=== PATIENT | male | born 1950 | race Caucasian/White ===

== ENCOUNTER 2019-06-09 12:43 | Inpatient (IN) | payer OTHER ==
[~2019-06-09] VITALS: Ht 177.8 cm; Wt 97.9 kg
[2019-06-09] VITALS (7 sets, daily range): BP systolic 125–162; BP diastolic 68–88
[2019-06-09 13:19] LABS: HEMATOCRIT 42.2 % (42.0-52.0); HEMOGLOBIN 14.1 gm/dL (14.0-18.0); MCHC 33.4 g/dL (28.0-37.0); MCV 92.7 fL (80.0-100.0); MPV 8.5 fl. (7.2-11.1); NUCLEATED RBCS 0 /100WBC; PCO2 VENOUS 36.3 mmHg (41.0-51.0); PLATELET COUNT* 400 thou/uL (150-400); PO2 VENOUS 35.1 mmHg (35.0-45.0); RBC 4.55 mil/uL (4.50-6.00); RDW-CV 13.3 % (10.5-14.5); WBC 25.8 thou/uL (4.0-11.0)
[2019-06-09 13:33] LABS: APTT 30.6 Seconds (25.0-31.3); PROTIME 10.4 Seconds (9.20-11.50)
[2019-06-09 13:35] LABS: CALCIUM 9.3 mg/dL (8.5-10.1); POTASSIUM 3.7 mmol/L (3.5-5.1)
[2019-06-09 13:45] LABS: ABSOLUTE LYMPHOCYTES 1.5 thou/uL (0.8-5.3); ABSOLUTE MONOCYTES 1.5 thou/uL (0.0-1.2); ABSOLUTE NEUTROPHILS 22.7 thou/uL (1.6-8.1); ATYPICAL LYMPHS 1 %; PLATELET ESTIMATE ADEQUATE
[2019-06-09 13:50] LABS: ALBUMIN 2.4 g/dL (3.4-5.0); CK-MB MASS 0.6 ng/mL (<0.5-3.6); TOTAL BILIRUBIN 0.7 mg/dL (<0.1-1.0)
--- NOTE | 2019-06-09 16:57 | EKG ---
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: TP : 1950 Requested By: Nagi Sigala Order Number: [id number] MD: Samir Gordon Measurements Intervals [place] Rate: 114 P: 7 NH: 144 QRS: -26 QRSD: 89 T: 24 QT: 345 QTc: 476 Interpretive Statements Sinus tachycardia Left atrial enlargement Borderline left axis deviation Borderline prolonged QT interval Baseline wander in lead(s) V1,V2,V4,V5 No previous ECG available for comparison Electronically Signed On 06-09-2019 16:57:16 [employer] by Samir Gordon [email or web address] <ELECTRONICALLY SIGNED> By: Samir Gordon MD, FACC 06/09/19 1657 1256 1256 Samir Gordon MD, FAC /EPI
[2019-06-09 17:04] LABS: URINE BLOOD TRACE (Negative); URINE CLARITY CLEAR; URINE COLOR YELLOW; URINE GLUCOSE-RANDOM 3+ (Negative); URINE LEUKOCYTES-REFLEX NEGATIVE (Negative); URINE NITRITE-REFLEX NEGATIVE (Negative); URINE PROTEIN TRACE (Negative); URINE SPECIFIC GRAVITY 1.025 (1.005-1.030); URINE UROBILINOGEN 0.2 E.U./dl (0.2-1.0)
[2019-06-09 17:07] LABS: URINE KETONES 3+ (Negative)
[2019-06-09 17:08] LABS: ICTOTEST (BILI CONFIRMATORY) Negative (Negative); URINE BILIRUBIN 1+ (Negative)
[2019-06-09 17:46] LABS: CALCIUM 9.2 mg/dL (8.5-10.1); CREATININE 0.8 mg/dL (0.6-1.3); POTASSIUM 3.1 mmol/L (3.5-5.1)
[2019-06-09 17:49] LABS: MAGNESIUM 1.7 mg/dL (1.8-2.4); PHOSPHORUS* 2.8 mg/dL (2.5-4.9)
[2019-06-09 21:19] LABS: ABSOLUTE BASOPHILS 0.2 thou/uL (0.0-0.2); ABSOLUTE LYMPHOCYTES 1.2 thou/uL (0.8-5.3); ABSOLUTE MONOCYTES 1.7 thou/uL (0.0-1.2); ABSOLUTE NEUTROPHILS 21.9 thou/uL (1.6-8.1); BASOPHILS 0.7 %; HEMATOCRIT 39.8 % (42.0-52.0); HEMOGLOBIN 13.3 gm/dL (14.0-18.0); LYMPHOCYTES 4.7 %; MCH 30.8 pg (26.0-34.0); MCHC 33.3 g/dL (28.0-37.0); MCV 92.4 fL (80.0-100.0); MONOCYTES 6.6 %; MPV 8.4 fl. (7.2-11.1); NUCLEATED RBCS 0 /100WBC; PLATELET COUNT* 332 thou/uL (150-400); RBC 4.31 mil/uL (4.50-6.00); RDW-CV 13.6 % (10.5-14.5); WBC 24.9 thou/uL (4.0-11.0)
[2019-06-09 21:36] LABS: ALBUMIN 1.8 g/dL (3.4-5.0); CALCIUM 9.2 mg/dL (8.5-10.1); CREATININE 0.8 mg/dL (0.6-1.3); PHOSPHORUS* 2.2 mg/dL (2.5-4.9); POTASSIUM 3.4 mmol/L (3.5-5.1)
[2019-06-09 21:52] LABS: CALCIUM 8.6 mg/dL (8.5-10.1); CREATININE 0.7 mg/dL (0.6-1.3); POTASSIUM 3.5 mmol/L (3.5-5.1); TOTAL BILIRUBIN 0.5 mg/dL (<0.1-1.0); TOTAL PROTEIN 5.9 g/dL (6.4-8.2)
[2019-06-09 22:11] LABS: ALBUMIN 1.6 g/dL (3.4-5.0)
[2019-06-09 22:12] LABS: MAGNESIUM 1.6 mg/dL (1.8-2.4)
[2019-06-10] VITALS (23 sets, daily range): BP systolic 101–148; BP diastolic 56–95
[2019-06-10 01:42] LABS: CREATININE 0.8 mg/dL (0.6-1.3); POTASSIUM 3.4 mmol/L (3.5-5.1)
[2019-06-10 01:45] LABS: ALBUMIN 1.5 g/dL (3.4-5.0); MAGNESIUM 1.6 mg/dL (1.8-2.4); PHOSPHORUS* 2.1 mg/dL (2.5-4.9)
[2019-06-10 05:54] LABS: ALBUMIN 1.5 g/dL (3.4-5.0); CALCIUM 8.9 mg/dL (8.5-10.1); CREATININE 0.7 mg/dL (0.6-1.3); MAGNESIUM 2.1 mg/dL (1.8-2.4); PHOSPHORUS* 2.3 mg/dL (2.5-4.9); POTASSIUM 3.7 mmol/L (3.5-5.1)
[2019-06-11] VITALS (23 sets, daily range): BP systolic 106–151; BP diastolic 60–88
[2019-06-11 02:06] LABS: GLYCOHEMOGLOBIN (HGB A1C) 13.4 % (4.8-5.6)
[2019-06-11 04:49] LABS: ABSOLUTE BASOPHILS 0.1 thou/uL (0.0-0.2); ABSOLUTE LYMPHOCYTES 1.4 thou/uL (0.8-5.3); ABSOLUTE MONOCYTES 1.7 thou/uL (0.0-1.2); ABSOLUTE NEUTROPHILS 15.9 thou/uL (1.6-8.1); BASOPHILS 0.7 %; EOSINOPHILS 0.1 %; HEMATOCRIT 36.3 % (42.0-52.0); HEMOGLOBIN 12.1 gm/dL (14.0-18.0); LYMPHOCYTES 7.2 %; MCH 30.6 pg (26.0-34.0); MCHC 33.4 g/dL (28.0-37.0); MCV 91.6 fL (80.0-100.0); MONOCYTES 8.7 %; MPV 7.9 fl. (7.2-11.1); NUCLEATED RBCS 0 /100WBC; PLATELET COUNT* 331 thou/uL (150-400); POLYS 83.3 %; RBC 3.96 mil/uL (4.50-6.00); RDW-CV 13.5 % (10.5-14.5); WBC 19.1 thou/uL (4.0-11.0)
[2019-06-11 05:00] LABS: ALBUMIN 1.2 g/dL (3.4-5.0); CALCIUM 8.3 mg/dL (8.5-10.1); CREATININE 0.8 mg/dL (0.6-1.3); MAGNESIUM 1.8 mg/dL (1.8-2.4); PHOSPHORUS* 2.6 mg/dL (2.5-4.9); POTASSIUM 3.8 mmol/L (3.5-5.1)
[2019-06-11 05:01] LABS: CHLORIDE 105 mmol/L (98-107); POTASSIUM 3.8 mmol/L (3.5-5.1); SODIUM 136 mmol/L (136-145)
[2019-06-11 05:02] LABS: ALBUMIN 1.2 g/dL (3.4-5.0); ANION GAP 11 mmol/L (7-16); BUN 15 mg/dL (7-18); CALCIUM 8.3 mg/dL (8.5-10.1); CO2 20 mmol/L (21-32); CREATININE 0.8 mg/dL (0.6-1.3); GLUCOSE 202 mg/dL (70-99); PHOSPHORUS* 2.6 mg/dL (2.5-4.9)
[2019-06-11 05:16] LABS: ALKALINE PHOSPHATASE 125 U/L (46-116); SGOT 9 U/L (15-37); SGPT 6 U/L (30-65); TOTAL BILIRUBIN 0.4 mg/dL (<0.1-1.0); TOTAL PROTEIN 4.1 g/dL (6.4-8.2)
--- NOTE | 2019-06-11 12:06 | CON ---
[address] [address] CONSULTATION Name: JORDANMIAH Room: [address] ADM IN M.R.#: [id number] Admission: 06/09/19 Attend Phys: Alta Mckeon Discharge: Date of : 52 Report #: [id number] THIS REPORT FOR: //name// CC: Carlos Hernandez DATE OF SERVICE: 06/10/2019 INFECTIOUS DISEASE CONSULTATION ATTENDING PHYSICIAN: Dr. Hernandez. REASON FOR EVALUATION: Necrotizing infection involving his right foot in a patient with uncontrolled diabetes mellitus. HISTORY OF PRESENT ILLNESS: Chart reviewed, the patient examined. This is a 69-year-old who apparently has been somewhat likely to avoid health concerns since his 7 years ago. His diabetes mellitus has been uncontrolled, does have feeling in his feet, it is a question of some peripheral neuropathy. Over the course of last few days, prior to admission, claims to have increasing inflammatory changes noticed to the right foot. It is not clear that he had any injury. He does have a chronic ulceration involving the plantar aspect of his left foot as well. He did admit to what he described as fevers, shaking chills, sweats. He describes some weight loss, poor p.o. intake. [place] [address]. Chest x-ray was unremarkable. Creatinine initially was 1.0, albumin of 2.4. Lactic acid 2.5. Urinalysis showed no significant inflammation. Venous Dopplers showed no evidence of DVT. Arterial Doppler showed monophasic waveforms. Blood cultures are sterile thus far. Imaging of the foot, plain film, showed extensive soft tissue gas within the forefoot dorsally at the level of the metatarsals and within the great toe suggestive of extensive soft tissue infection. No definite osteomyelitis. He is scheduled to undergo operative debridement this afternoon. ALLERGIES: None known. MEDICATIONS: Currently include Zosyn, pantoprazole, vancomycin, prochlorperazine, p.r.n. analgesics. PAST MEDICAL HISTORY: He has diabetes mellitus, has been cleared for a number of years. SOCIAL HISTORY: Nonsmoker, no ethanol, no illicit drug use. FAMILY HISTORY: Noncontributory. REVIEW OF SYSTEMS: Otherwise, unremarkable 10-point review [place] [address] CONSULTATION Name: MIAH ORTEGA Room: [address] [facility]#: [id number] Admission: 06/09/19 Attend Phys: Alta Mckeon Discharge: Date of : 52 Report #: [id number] exception noted above. PHYSICAL EXAMINATION: GENERAL: Xlpa-xl-shfgdzuw distress, appears chronically ill, undernourished. He is pleasant and cooperative. He appears to be fairly lucid. VITAL SIGNS: Temperature max 102.1, more recently 98.5; pulse 105, respirations 22, blood pressure 135/74. SKIN: Warm, dry, no rashes. HEENT: Normocephalic. Extraocular muscles intact. NECK: Supple. LUNGS: Generally clear to auscultation. HEART: Regular. Borderline tachycardic. I do not appreciate a murmur. ABDOMEN: Soft, nontender, nondistended. EXTREMITIES: Distal right lower extremity has changes consistent with some necrosis. The skin is intact. There is odor, some clear type drainage, markedly discolored. GENITOURINARY: Deferred. RECTAL: Deferred. LABORATORY DATA: As described above. Labs from this morning, sodium 133, potassium 3.7, chloride 103, bicarbonate is 20, anion gap of 10, BUN and creatinine 17 and 0.7, glucose of 164, albumin of 1.5, prealbumin of 3.1. CBC: White count of 24.9, H and H 13.3 and 39.8, platelets of 332, does have monocytosis as well. ASSESSMENT: Necrotizing infection involving the right foot in a patient with uncontrolled diabetes mellitus. Did discuss with Dr. Sailaja Mckeon. I think there is urgent need to and agree he needs to have surgical debridement. We will continue broad-spectrum antimicrobial therapy, empiric nature, suspect polymicrobial etiology including anaerobes possibly. He is not overtly unstable hemodynamically. We will monitor expectantly. Add incentive spirometry. Certainly risk for additional complications. Blood sugar control certainly will be primary. Optimize his nutritional status. <ELECTRONICALLY SIGNED> By: Jeanmarie Rodriguez MD 06/11/19 1206 1635 0021Jeanmarie Rodriguez MD /nt
--- NOTE | 2019-06-11 16:39 | 2DMMODE ---
[place] [address] 2 D/M-MODE ECHOCARDIOGRAM Name: MIAH ORTEGA Room: [facility] IN [facility]#: [id number] Admission: 06/09/19 Attend Phys: Arie Hernandez Discharge: Date of : 52 Date of Service: 06/11/19 1639 Report #: [id number] THIS REPORT FOR: //name// APPROVED REPORT Study performed: 06/11/2019 14:53:11 EXAM: Comprehensive 2D, Doppler, and color-flow Echocardiogram Patient Location: In-Patient Room #: [facility] Status: routine BSA: 2.03 HR: 109 bpm BP: 131/69 mmHg Rhythm: NSR Other Information Study Quality: Good Indications Dyspnea 2D Dimensions IVSd: 12.16 (7-11mm) LVOT Diam: 22.41 (18-24mm) LVDd: 44.92 mm PWd: 10.75 (7-11mm) Ascending Ao: 33.99 (22-36mm) LVDs: 31.21 (25-40mm) Aortic Root: 35.54 mm Volumes Left Atrial Volume (Systole) LA ESV Index: 25.20 mL/m2 Aortic Valve LVOT Max P.45 mmHg LVOT Mean P.86 mmHg LVOT Max V: 0.93 m/s LVOT Mean V: 0.64 m/s LVOT V1 VTI: 17.86 cm Mitral Valve E/A Ratio: 0.83 MV Decel. Time: 151.25 ms MV E Max Girish.: 1.07 m/s MV PHT: 43.86 [place] [address] 2 D/M-MODE ECHOCARDIOGRAM Name: MIAH ORTEGA Room: [address] IN [facility]#: [id number] Admission: 06/09/19 Attend Phys: Arie Hernandez Discharge: Date of : 52 Date of Service: 06/11/19 1639 Report #: [id number] MVA (PHT): 5.02 cm2 TDI E/Lateral E': 7.64 E/Medial E': 10.70 Medial E' Girish.: 0.10 m/s Lateral E' Girish.: 0.14 m/s Pulmonary Valve PV Peak Girish.: 0.92 m/s PV Peak Gr.: 3.41 mmHg Left Ventricle The left ventricle is normal size. There is normal LV segmental wall motion. There is normal left ventricular wall thickness. Left ventricular systolic function is normal. LVEF is 55-60%. Grade I - abnormal relaxation pattern. Right Ventricle The right ventricle is normal size. The right ventricular systolic function is normal. Atria Left atrium is mildly dilated. The right atrium size is normal. Aortic Valve Mild aortic valve sclerosis. No aortic regurgitation is present. There is no aortic valvular stenosis. Mitral Valve There is mitral annular calcification. Trace mitral regurgitation. No evidence of mitral valve stenosis. Tricuspid Valve The tricuspid valve is normal in structure. No pulmonary hypertension. Trace tricuspid regurgitation. Pulmonic Valve The pulmonary valve is normal in structure. There is no pulmonic valvular regurgitation. Great Vessels The aortic root is normal in size. IVC is normal in size and collapses >50% with inspiration. Pericardium There is no pericard[place] [address] 2 D/M-MODE ECHOCARDIOGRAM Name: MIAH ORTEGA Room: [facility] IN M.R.#: [id number] Admission: 06/09/19 Attend Phys: Arie Hernandez Discharge: Date of : 52 Date of Service: 06/11/19 1639 Report #: [id number] <Conclusion> The left ventricle is normal size. There is normal left ventricular wall thickness. Left ventricular systolic function is normal. LVEF is 55-60%. Grade I - abnormal relaxation pattern. Left atrium is mildly dilated. Mild aortic valve sclerosis. There is no aortic valvular stenosis. Trace mitral regurgitation. No pulmonary hypertension. Trace tricuspid regurgitation. IVC is normal in size and collapses >50% with inspiration. <ELECTRONICALLY SIGNED> By: Denton Perez MD, FACC 06/11/19 1639 1639 1639 Denton Perez MD, FACC /INF
[2019-06-12] VITALS (10 sets, daily range): BP systolic 121–148; BP diastolic 68–88
--- NOTE | 2019-06-12 07:48 | OP ---
[facility] [address] [place] [address] OPERATIVE REPORT Name: MIAH ORTEGA Room: [address] ADM IN M.R.#: [id number] Admission: 06/09/19 Attend Phys: Alta Mckeon Discharge: Date of : 52 Report #: [id number] THIS REPORT FOR: //name// CC: Carlos Hernandez DATE OF SERVICE: 06/10/2019 SURGEON: Sailaja Mckeon DPM. FINANCE ADMIN: None. PREOPERATIVE DIAGNOSIS: Gas gangrene, right foot, abscess right foot, ascending cellulitis, right foot. POSTOPERATIVE DIAGNOSIS: Osteomyelitis, right hallux, gas gangrene, right foot, abscess right foot, ascending cellulitis, right foot. PROCEDURE: Partial first ray amputation and incision and drainage, right foot. PATHOLOGY: Right hallux and right first metatarsal and deep cultures, aerobic and anaerobic. ANESTHESIA: General anesthesia. HEMOSTASIS: Right pneumatic upper calf tourniquet set at 250 mmHg pressure. ESTIMATED BLOOD LOSS: Less than 12 mL. MATERIALS: 3-0 Vicryl. INJECTABLES: None. CONDITION: The patient tolerated the procedure well and left the OR in stable condition. DESCRIPTION OF PROCEDURE: The patient was brought to the OR and placed in a supine position, at which time, anesthesia was administered. A well-padded high calf tourniquet was placed to the right lower extremity. The patient was then prepped and draped in the usual sterile and aseptic manner. A timeout was called, patient identified along with the extremity, procedures to be performed, any known allergies, all parties in the OR were in agreement. The calf tourniquet was elevated to 250 mmHg pressure. Attention was then directed to the right foot where a circular incision was made around the right hallux. The right hallux was removed all the way down to the first metatarsophalangeal joint as the superficial and deep fascia planes were dissected, [place] [address] OPERATIVE REPORT Name: JORDANMIAH Room: [address] ADM IN .R.#: [id number] Admission: 06/09/19 Attend Phys: Alta Mckeon Discharge: Date of : 52 Report #: [id number] gas within the tissue began to be expelled. The hallux was removed from the surgical site, will be sent separately from remaining pathology. The tissue was inspected to the first metatarsophalangeal joint. There was camilla purulence coming from the subcutaneous level of tissue on the dorsum of the foot. The purulence extended down into the deep tissue going more proximal to the first metatarsal and to the lateral forefoot through the superficial and deep fascial planes. Dissection was begun within the remaining surgical site. All devitalized tissue was removed from the immediate operative site. The first metatarsal was resected down to the base as there was no soft tissue coverage for this. This bone was resected and sent separately. Deep cultures were obtained, both aerobic and anaerobic. At this point, I probed through the subcutaneous fascia to the lateral aspect of the foot. It was clear that the skin overlying this area has become somewhat devitalized and underneath is that a layer of purulence and I suspect a deeper layer. Utilizing suction as much purulence as I could identify, it was removed from the surgical site and through superficial and deep fascial planes. Next, the surgical site was irrigated with sterile saline and antibiotic solution. Next, the surgical site was again inspected further, devitalized tissue was resected. At this point, purulence still was active within the surgical site. At this point, I elected to leave the patient open and not to pursue any further amputation or tissue removal. The surgical site was packed with 0.5 inch iodoform gauze, ABDs, Kerlix, and soft roll. The calf tourniquet was deflated after a period of 3 minutes. There was no bleed through to the surgical dressing. Coban was applied. Vascular status was noted to return to the remaining digits. The patient left the OR in stable condition and was transferred back to the ICU. <ELECTRONICALLY SIGNED> By: Sailaja Mckeon DPM 06/12/19 0748 0617 0648Sailaja Mckeon DPM /sailaja
[2019-06-12 10:47] LABS: CALCIUM 8.5 mg/dL (8.5-10.1); CREATININE 0.8 mg/dL (0.6-1.3); MAGNESIUM 1.9 mg/dL (1.8-2.4); PHOSPHORUS* 3.3 mg/dL (2.5-4.9); POTASSIUM 3.7 mmol/L (3.5-5.1)
[2019-06-12 21:25] LABS: URINE BILIRUBIN NEGATIVE (Negative); URINE BLOOD 1+ (Negative); URINE CLARITY CLEAR; URINE COLOR YELLOW; URINE GLUCOSE-RANDOM 3+ (Negative); URINE KETONES TRACE (Negative); URINE LEUKOCYTES NEGATIVE (Negative); URINE NITRITE NEGATIVE (Negative); URINE PROTEIN TRACE (Negative); URINE UROBILINOGEN 0.2 E.U./dl (0.2-1.0)
[2019-06-12 21:34] LABS: AMORPHOUS URATES Moderate /LPF (None Seen); BACTERIA >30 Many /HPF (None Seen); COARSE GRANULAR CASTS 0-3 Few /LPF (None Seen); FINE GRANULAR CASTS 0-3 Few /LPF (None Seen); MUCUS 4-6 Moderate strn/LPF (None Seen); SQUAMOUS 0-3 Few /LPF (0-3); URINE WBC None Seen /HPF (0-5)
[2019-06-13] VITALS: BP 162/92
[2019-06-13 04:00] VITALS: BP 148/80
[2019-06-13 04:47] LABS: HEMATOCRIT 35.6 % (42.0-52.0); HEMOGLOBIN 11.9 gm/dL (14.0-18.0); MCH 30.4 pg (26.0-34.0); MCHC 33.5 g/dL (28.0-37.0); MCV 90.8 fL (80.0-100.0); MPV 7.9 fl. (7.2-11.1); RBC 3.92 mil/uL (4.50-6.00); RDW-CV 13.5 % (10.5-14.5); WBC 15.2 thou/uL (4.0-11.0)
[2019-06-13 05:02] LABS: ALBUMIN 1.1 g/dL (3.4-5.0); CALCIUM 8.6 mg/dL (8.5-10.1); CREATININE 0.8 mg/dL (0.6-1.3); POTASSIUM 3.5 mmol/L (3.5-5.1); TOTAL BILIRUBIN 0.4 mg/dL (<0.1-1.0); TOTAL PROTEIN 5.5 g/dL (6.4-8.2)
[2019-06-13 08:00] VITALS: BP 147/86
[2019-06-13 12:08] VITALS: BP 147/85
[2019-06-13 15:52] VITALS: BP 154/84
[2019-06-13 20:00] VITALS: BP 148/84
[2019-06-14] VITALS: BP 132/71
[2019-06-14 04:00] VITALS: BP 136/76
[2019-06-14 08:00] VITALS: BP 107/71
[2019-06-14 09:34] LABS: HEMATOCRIT 35.3 % (42.0-52.0); HEMOGLOBIN 11.6 gm/dL (14.0-18.0); MCH 30.4 pg (26.0-34.0); MCHC 32.9 g/dL (28.0-37.0); MCV 92.4 fL (80.0-100.0); MPV 8.5 fl. (7.2-11.1); NUCLEATED RBCS 0 /100WBC; PLATELET COUNT* 328 thou/uL (150-400); RBC 3.82 mil/uL (4.50-6.00); RDW-CV 13.6 % (10.5-14.5); WBC 15.1 thou/uL (4.0-11.0)
--- NOTE | 2019-06-14 09:36 | OP ---
[facility] [address] [place] [address] OPERATIVE REPORT Name: MIAH ORTEGA Room: [address] IN M.R.#: [id number] Admission: 06/09/19 Attend Phys: Alta Mckeon Discharge: Date of : 52 Report #: [id number] THIS REPORT FOR: //name// CC: Carlos Hernandez DATE OF SERVICE: 06/13/2019 SURGEON: Sailaja Zaragoza DPM. AFRICAN HISTORY PROFESSOR: None. PREOPERATIVE DIAGNOSIS: Dysvascular cyanotic right second toe and status post incision and drainage and partial first ray amp right foot on 08/11/2018. POSTOPERATIVE DIAGNOSIS: Dysvascular cyanotic right second toe and status post incision and drainage and partial first ray amp right foot on 08/11/2018. PROCEDURE: Partial second ray amputation and incision and drainage, right foot. PATHOLOGY: Partial first ray, right foot, aerobic and anaerobic cultures. ANESTHESIA: LMA, general. COMPLICATIONS: None. ESTIMATED BLOOD LOSS: Less than 5 mL. MATERIALS: None. INJECTABLES: None. CONDITION: The patient left the OR in stable condition. DESCRIPTION OF PROCEDURE: The patient was brought to the OR and placed in a supine position, at which time, anesthesia was administered. The patient was then prepped and draped in the usual sterile and aseptic manner. A timeout was called. All parties in the OR were in agreement as to the patient, the extremity, the procedure to be performed and any other precautions necessary. All parties in the OR were in agreement. Attention was then directed to the right foot where a circumferential incision was made to the base of the right second toe. The incision was carried down through subcutaneous tissue down to the level of the metatarsophalangeal joint. The toe was then disarticulated at the metatarsophalangeal joint. Purulence was noted within the soft tissues in this area. The toe was removed and will be sent to pathology. Next, the previous surgical wound was then debrided of all [place] [address] OPERATIVE REPORT Name: MIAH ORTEGA Room: [address] ADM IN M.R.#: [id number] Admission: 06/09/19 Attend Phys: Alta Mckeon Discharge: Date of : 52 Report #: [id number] scant bleeding to this surgical site. After removal of all devitalized skin to the previous surgical site, the second metatarsal no longer had soft tissue coverage. The second metatarsal was partially resected. Next, I probed through the soft tissues along the skin to the dorsum of the foot coursing to the ankle within this whole layer. There was purulence from probably retained bacteria. Also, ____ of the surrounding skin and subcutaneous tissue, it was noted that there was tracking down into the third and fourth interspaces of the forefoot. These areas were all irrigated with sterile saline and antibiotic solution. The previous surgical site was irrigated with sterile saline and antibiotic solution. The foot was left open and packed with iodoform gauze, ABDs, Kerlix and an Nicola wrap. The patient tolerated the procedure well and left the OR with vital signs stable. <ELECTRONICALLY SIGNED> By: Sailaja Mckeon DPM 06/14/19 0936 1038 1155Ann IVETTE Mckeon /nt
[2019-06-14 09:52] LABS: ALBUMIN 1.1 g/dL (3.4-5.0); CALCIUM 7.9 mg/dL (8.5-10.1); CREATININE 0.7 mg/dL (0.6-1.3); POTASSIUM 3.7 mmol/L (3.5-5.1); TOTAL BILIRUBIN 0.4 mg/dL (<0.1-1.0); TOTAL PROTEIN 4.5 g/dL (6.4-8.2)
[2019-06-14 10:51] LABS: ABSOLUTE MONOCYTES 0.5 thou/uL (0.0-1.2); ABSOLUTE NEUTROPHILS 12.7 thou/uL (1.6-8.1)
[2019-06-14 10:52] LABS: ANISOCYTOSIS Occasional; BURR CELLS Occasional; PLATELET ESTIMATE ADEQUATE
[2019-06-14 12:19] VITALS: BP 145/81
[2019-06-14 16:33] VITALS: BP 122/69
[2019-06-14 20:00] VITALS: BP 147/79
[2019-06-15] VITALS: BP 127/75; BP 133/75
[2019-06-15 03:30] VITALS: BP 146/86
[2019-06-15 08:00] VITALS: BP 142/75
[2019-06-15 09:45] LABS: ABSOLUTE EOSINOPHILS 0.1 thou/uL (0.0-0.7); ABSOLUTE LYMPHOCYTES 1.6 thou/uL (0.8-5.3); ABSOLUTE MONOCYTES 0.9 thou/uL (0.0-1.2); ABSOLUTE NEUTROPHILS 10.2 thou/uL (1.6-8.1); BASOPHILS 0.3 %; HEMATOCRIT 33.3 % (42.0-52.0); HEMOGLOBIN 11.2 gm/dL (14.0-18.0); LYMPHOCYTES 12.5 %; MCHC 33.7 g/dL (28.0-37.0); MCV 91.9 fL (80.0-100.0); MONOCYTES 7.1 %; MPV 8.3 fl. (7.2-11.1); NUCLEATED RBCS 0 /100WBC; PLATELET COUNT* 362 thou/uL (150-400); POLYS 79.1 %; RBC 3.63 mil/uL (4.50-6.00); RDW-CV 13.7 % (10.5-14.5); WBC 12.8 thou/uL (4.0-11.0)
[2019-06-15 09:57] LABS: ALBUMIN 1.1 g/dL (3.4-5.0); CALCIUM 7.8 mg/dL (8.5-10.1); CREATININE 0.7 mg/dL (0.6-1.3); POTASSIUM 3.6 mmol/L (3.5-5.1); TOTAL BILIRUBIN 0.4 mg/dL (<0.1-1.0); TOTAL PROTEIN 4.4 g/dL (6.4-8.2)
[2019-06-15 11:46] VITALS: BP 141/76
[2019-06-15 16:03] VITALS: BP 142/84
--- NOTE | 2019-06-15 16:06 | PATH ---
[facility] [address] [place] [address] PATHOLOGY RPT PROCEDURE Name: MIAH BLANTON Room: [address] ADM IN M.R.#: [id number] Admission: 06/09/19 Date of : 52 Discharge: Report #: [id number] Path Case #: [id number] L[facility] Accession Number: [id number] . 01 Material submitted: . PART A: hallux - RIGHT HALLUX. Modifiers: right PART B: toe - RIGHT FIRST METATARSAL. Modifiers: right . 01 Clinical history: . Sepsis, right leg cellulitis. . 02 Diagnosis: A. Right hallux: - Benign toe with extensive acute inflammation and necrosis of soft tissues and osteomyelitis of phalangeal bones including osteomyelitis extending to disarticulation margin. . B. Right first metatarsal: - Osteocartilaginous segment with osteomyelitis near articular (cartilaginous) end and with attached acutely inflamed and necrotic soft tissue. - Separate segment of benign bone without osteomyelitis identified. (JOANN:manuel; 06/15/2019) S 06/15/2019 1450 Local . 02 Electronically signed: . Mike Alvarez MD, Pathologist NPI- [id number] . 01 Gross description: . A. Received in formalin labeled "Miah Blanton, right hallux" is a toe amputation specimen measuring 7.5 x 5.3 x 4.0 cm. The proximal skin and soft tissue margin is smooth and consistent with the resection margin, and the proximal aspect of the bone is concave, cartilaginous, and consistent with a disarticulation. The margin is inked entirely black. The toe is nearly entirely patel-green and discolored, over a 6.2 x 4.0 x 4.0 cm area. This area is located 0.4 cm from the closest skin and soft tissue margin, and 2.5 cm from the bone disarticulation. The area surrounds the nail (2.0 x 1.8 x 0.2 cm). Machine Erector cross-sections of the specimen are submitted in cassettes A1-A7 following decalcification (submitted from distal to proximal). . B. Received in formalin labeled "Miah Blanton, right first metatarsal" are two fragments of bone. The first fragment measures 5.5 x 2.8 x 2.5 cm. One aspect is a smooth surgical margin (inked black) and the opposite aspect has a convex cartilaginous covered articular surface. Scant adherent soft tissue is present. No lesions are grossly identified. Also present within the container is a segment of bone measuring 0.9 [place] [address] PATHOLOGY RPT PROCEDURE Name: MIAH BLANTON Room: [address] IN M.R.#: [id number] Admission: 06/09/19 Date of : 52 Discharge: Report #: [id number] Path Case #: [id number] in length and 2.6 cm in width. Both aspects are smooth and consistent with surgical margins, inked black and blue. Machine Erector sections of the specimen are submitted after decalcification as follows: B1-B2 public service representative cross section of disarticulated portion of bone B3 public service representative segment of bone [place] [place] [facility] 06/15/2019 1542 Local . 02 Pathologist provided ICD-10: L98.9, I96, M86.171 . 02 CPT . 828212, 799555, 540314, 100725 Specimen Comment: A courtesy copy of this report has been sent to [phone] Specimen Comment: Report sent to Performed at: 01 [facility] [address], [place], [place] [id number] MD Anderson Jacques MD Phone: [phone] Performed at: 02 [facility] [address], [place], [place] [id number] MD Mike Alvarez MD Phone: [phone]
[2019-06-15 20:00] VITALS: BP 121/67
[2019-06-16] VITALS: BP 142/70
[2019-06-16 04:00] VITALS: BP 140/75
[2019-06-16 08:00] VITALS: BP 143/83
[2019-06-16 11:47] VITALS: BP 136/71
[2019-06-16 15:31] VITALS: BP 121/63
[2019-06-16 20:00] VITALS: BP 111/59
[2019-06-17] VITALS (7 sets, daily range): BP systolic 101–135; BP diastolic 48–76
[2019-06-18] VITALS: BP 117/72
[2019-06-18 04:00] VITALS: BP 120/65
[2019-06-18 05:23] LABS: ABSOLUTE BASOPHILS 0.2 thou/uL (0.0-0.2); ABSOLUTE LYMPHOCYTES 1.4 thou/uL (0.8-5.3); ABSOLUTE MONOCYTES 0.8 thou/uL (0.0-1.2); ABSOLUTE NEUTROPHILS 11.5 thou/uL (1.6-8.1); BASOPHILS 1.3 %; EOSINOPHILS 0.1 %; HEMATOCRIT 31.8 % (42.0-52.0); HEMOGLOBIN 10.7 gm/dL (14.0-18.0); MCH 30.9 pg (26.0-34.0); MCHC 33.8 g/dL (28.0-37.0); MCV 91.4 fL (80.0-100.0); MONOCYTES 5.5 %; MPV 7.7 fl. (7.2-11.1); NUCLEATED RBCS 0 /100WBC; POLYS 83.1 %; RBC 3.48 mil/uL (4.50-6.00); RDW-CV 13.5 % (10.5-14.5); WBC 13.8 thou/uL (4.0-11.0)
[2019-06-18 05:25] LABS: PLATELET COUNT* 555 thou/uL (150-400)
[2019-06-18 05:30] LABS: CALCIUM 8.1 mg/dL (8.5-10.1); CREATININE 0.8 mg/dL (0.6-1.3); POTASSIUM 3.7 mmol/L (3.5-5.1)
[2019-06-18 07:00] VITALS: BP 138/75
[2019-06-18 11:48] VITALS: BP 80/40; BP 83/41
[2019-06-18 12:13] LABS: ALBUMIN 1.1 g/dL (3.4-5.0); CALCIUM 8.4 mg/dL (8.5-10.1); CREATININE 0.8 mg/dL (0.6-1.3); POTASSIUM 3.7 mmol/L (3.5-5.1); TOTAL BILIRUBIN 0.2 mg/dL (<0.1-1.0)
[2019-06-18 16:00] VITALS: BP 95/50
[2019-06-18 20:00] VITALS: BP 99/45
[2019-06-19] VITALS: BP 98/49
[2019-06-19 04:00] VITALS: BP 118/66
[2019-06-19 08:00] VITALS: BP 131/69
[2019-06-19 20:50] VITALS: BP 135/77
[2019-06-20] VITALS: BP 105/57
[2019-06-20 04:00] VITALS: BP 138/73
[2019-06-20 08:00] VITALS: BP 147/81
[2019-06-20 11:06] LABS: ABSOLUTE BASOPHILS 0.1 thou/uL (0.0-0.2); ABSOLUTE LYMPHOCYTES 1.3 thou/uL (0.8-5.3); ABSOLUTE MONOCYTES 0.6 thou/uL (0.0-1.2); ABSOLUTE NEUTROPHILS 8.5 thou/uL (1.6-8.1); BASOPHILS 0.6 %; EOSINOPHILS 0.3 %; HEMATOCRIT 29.1 % (42.0-52.0); HEMOGLOBIN 9.9 gm/dL (14.0-18.0); LYMPHOCYTES 12.3 %; MCHC 33.9 g/dL (28.0-37.0); MCV 91.5 fL (80.0-100.0); MONOCYTES 6.1 %; MPV 7.4 fl. (7.2-11.1); NUCLEATED RBCS 0 /100WBC; PLATELET COUNT* 616 thou/uL (150-400); POLYS 80.7 %; RBC 3.18 mil/uL (4.50-6.00); RDW-CV 13.7 % (10.5-14.5); WBC 10.5 thou/uL (4.0-11.0)
[2019-06-20 11:24] LABS: ALBUMIN 1.2 g/dL (3.4-5.0); CALCIUM 7.9 mg/dL (8.5-10.1); CREATININE 0.7 mg/dL (0.6-1.3); POTASSIUM 3.9 mmol/L (3.5-5.1); TOTAL BILIRUBIN 0.3 mg/dL (<0.1-1.0); TOTAL PROTEIN 5.2 g/dL (6.4-8.2)
[2019-06-20 12:00] VITALS: BP 124/61
[2019-06-20 16:00] VITALS: BP 145/76
[2019-06-20 20:00] VITALS: BP 141/77
[2019-06-21] VITALS: BP 146/86
[2019-06-21 04:00] VITALS: BP 145/84
[2019-06-21 08:00] VITALS: BP 147/87
[2019-06-21 16:01] VITALS: BP 126/66
[2019-06-21 20:00] VITALS: BP 126/75
[2019-06-21 23:25] VITALS: BP 143/80
[2019-06-22 04:30] VITALS: BP 102/47
[2019-06-22 08:00] VITALS: BP 129/62
[2019-06-22] MEDS ORDERED: LANTUS SUBQ (12:03)
[2019-06-22] MEDS ORDERED: PANTOPRAZOLE SO40 M1 PO (12:03)
[2019-06-22] MEDS ORDERED: HUMALOG100 UNIT/1 SUBQ (12:03)
[2019-06-22] MEDS ORDERED: SENNA-TIME S T1 EACH PO (12:03)
[2019-06-22] MEDS ORDERED: HYDROCODON-ACE1 EAC7 PO (12:03)
--- NOTE | 2019-06-22 15:07 | PATH ---
[address] [address] PATHOLOGY RPT PROCEDURE Name: MIAH BLANTON Room: [address] ADM IN M.R.#: [id number] Admission: 06/09/19 Date of : 52 Discharge: Report #: [id number] Path Case #: [id number] [facility] Accession Number: [id number] . 01 Material submitted: . leg - RIGHT BELOW KNEE AMPUTATION. Modifiers: right . 01 Clinical history: . Osteomyelitis right foot. . 02 Diagnosis: Right below knee amputation: - Benign right lower extremity with missing first and second toe tissues and with extensive acute inflammation and necrosis of soft tissues of foot and ankle, ischemic changes of soft tissues of anterior kim, osteomyelitis of first metatarsal and diffuse severe calcifying arteriosclerosis of anterior and posterior tibial arteries and moderate arteriosclerosis of dorsalis pedis artery. (JOANN:soren; 06/22/2019) MBR 06/22/2019 1422 Local . 02 Electronically signed: . Mike Alvarez MD, Pathologist NPI- [id number] . 01 Gross description: . Received fresh labeled "Miah Blanton, right below knee amputation" is a below knee amputation specimen consisting of a right lower leg (41.1 x 10.2 x 7.4 cm) and foot (25.5 x 10.5 x 9.6 cm). The tibial and fibular bone resection are smooth and consistent with surgical resections. The proximal skin and soft tissue margin is smooth and grossly viable. The posterior aspect of the leg displays a skin flap surgical defect. The anterior and posterior tibial arteries are identified at the resection margin, and display focal calcification and less than 10% stenosis. The dorsalis pedis artery is identified and displays possible stenosis up to 50%. The foot displays a surgical defect and absent first and second toes, with the defect area measuring 8.5 x 3.5 x 2.5 cm. The first metatarsal bone has a smooth surgical resection margin, and is surrounded by ulcerated tissue. The second metatarsal has a disarticulation. The third through fifth toes are present. The dorsal aspect of the foot displays a green-purple variegated ulcerated area extending from the surgical site at the first and second toes and up through the ankle, measuring entirely 22.5 x 12.5 x 9.2 cm. This area is located 15.5 cm from the closest skin and soft tissue margins, 25.1 cm from the tibial margin, and 25.0 cm from the fibular margin. An additional patchy red-purple hemorrhagic area is identified on the anterior kim, measuring 6.1 x 5.0 cm, located 6.6 cm from the skin and soft tissue margin, 11.3 cm from the tibial margin, and 14.2 cm [place] [address] PATHOLOGY RPT PROCEDURE Name: MIAH BLANTON Room: [address] ADM IN M.R.#: [id number] Admission: 06/09/19 Date of : 52 Discharge: Report #: [id number] Path Case #: [id number] . A1 anterior and posterior tibial vessels at resection margin A2 tibial and fibular bone marrow at margins A3 outside dealer sales representative skin and soft tissue at margin A4 dorsalis pedis artery A5 outside dealer sales representative variegated ulcerated area on dorsal foot A6 outside dealer sales representative first and second toes surgical site A7 bone underlying surgical site (first metatarsal) following decalcification A8 patchy hemorrhagic area on the anterior kim ([facility]; 06/18/2019) SYC/SYC 06/18/2019 1617 Local . 02 Pathologist provided ICD-10: M86.161, I70.201 . 02 CPT . 266917, 841937 Specimen Comment: A courtesy copy of this report has been sent to [phone] Specimen Comment: [phone], Specimen Comment: Report sent to , and Performed at: 01 [facility] [id number] [facility] [address], [place] [id number] MD Anderson Jacques MD Phone: [phone] Performed at: 02 [facility] [address], [place], [place] [id number] MD Mike Alvarez MD Phone: [phone]
[2019-06-22 16:37] VITALS: BP 145/92
[2019-06-22 20:00] VITALS: BP 122/64
[2019-06-23] VITALS (7 sets, daily range): BP systolic 117–144; BP diastolic 64–79
[2019-06-23 06:13] LABS: HEMATOCRIT 29.8 % (42.0-52.0); HEMOGLOBIN 10.3 gm/dL (14.0-18.0); MCH 31.3 pg (26.0-34.0); MCHC 34.6 g/dL (28.0-37.0); MCV 90.4 fL (80.0-100.0); MPV 6.6 fl. (7.2-11.1); RBC 3.3 mil/uL (4.50-6.00); RDW-CV 13.7 % (10.5-14.5)
[2019-06-23 06:27] LABS: ALBUMIN 1.5 g/dL (3.4-5.0); CALCIUM 7.9 mg/dL (8.5-10.1); CREATININE 0.7 mg/dL (0.6-1.3); MAGNESIUM 1.8 mg/dL (1.8-2.4); TOTAL BILIRUBIN 0.3 mg/dL (<0.1-1.0); TOTAL PROTEIN 5.5 g/dL (6.4-8.2)
--- NOTE | 2019-06-23 07:40 | OP ---
[facility] [address] [place] [address] OPERATIVE REPORT Name: MIAH ORTEGA Room: [address] IN M.R.#: [id number] Admission: 06/09/19 Attend Phys: Alta Mckeon Discharge: Date of : 52 Report #: [id number] THIS REPORT FOR: //name// CC: Carlos Hernandez DATE OF SERVICE: 06/17/2019 PREOPERATIVE DIAGNOSIS: Nonhealing right foot wound with extensive osteomyelitis and tissue loss. POSTOPERATIVE DIAGNOSIS: Nonhealing right foot wound with extensive osteomyelitis and tissue loss. OPERATION: Right below knee amputation. SURGEON: Mariano Martinez DO CHILDREN'S AIDE: Beau Aguilar DO, PGY-1. ANESTHESIA: General. ESTIMATED BLOOD LOSS: 300 mL. FLUIDS: About 1800 crystalloid. URINE OUTPUT: See anesthesia report. SPECIMENS: Right lower leg. COMPLICATIONS: None. FINDINGS: He had excellent bleeding at the amputation level, came together without any significant tension. CLINICAL HISTORY: The patient is a 69-year-old man with nonhealing right foot wound. He has undergone multiple attempts at limb salvage, but unfortunately he has too much tissue loss in the foot, necessitating below knee amputation. DESCRIPTION OF PROCEDURE: After informed consent was obtained, the patient was taken to the operating room and placed on the OR bed in supine position. He was administered general anesthesia by Anesthesia team. Right lower extremity was prepped and draped in usual sterile fashion. Full timeout was performed identifying correct the patient and procedure. Next, standard posterior flap incision was made in the lower leg just 4 fingerbreadths below the tibial tuberosity. Dissection was carried down through the skin and subcutaneous [place] [id number] OPERATIVE REPORT Name: MIHA ORTEGA Room: [address] IN M.R.#: [id number] Admission: 06/09/19 Attend Phys: Alta Mckeon Discharge: Date of : 52 Report #: [id number] tissue, both sharp and electrocautery. The anterior neurovascular bundle was identified, was ligated with 2-0 silk ties and divided. Divided all the muscular compartments, the anterolateral and medial side. I used the periosteal elevator and skeletonized the fibula as well as the tibia. I used the oscillating bone saw to transect the tibia 4 fingerbreadths below the tibial tuberosity. I then transected the fibula about a centimeter proximal to this. Created the posterior gastrocnemius and soleus flap. Controlled bleeding vessels with 3-0 Vicryl suture ligatures and electrocautery. Transected the tibial nerve behind the knee sharply. I then ligated the popliteal vessels with 2-0 silk suture ligatures. Once hemostasis was ensured, the wound was irrigated with antibiotic solution. It was then reapproximated with 0 and 2-0 Vicryl and evelyn in the skin making sure to pad the stump well. It should be noted that prior to this closure, the anterior of the tibia had been bevelled appropriately. Once the skin was closed, sterile dressings were applied. All counts were reported as correct x 2. He tolerated the procedure well and transferred to recovery in stable condition. <ELECTRONICALLY SIGNED> By: Jasper Hernandez MD 06/23/19 0740 1709 2047Amaurizio Martinez DO /nt
[2019-06-23] MEDS ORDERED: NEURONTIN100 MG PO (13:05)
[2019-06-24] VITALS: BP 121/69
[2019-06-24 04:00] VITALS: BP 114/91
[2019-06-24 08:00] VITALS: BP 162/85
[2019-06-24 11:30] VITALS: BP 148/88
[2019-06-24 16:00] VITALS: BP 133/64
[2019-06-25] VITALS (7 sets, daily range): BP systolic 98–137; BP diastolic 56–76
[2019-06-25 06:39] LABS: HEMATOCRIT 28.9 % (42.0-52.0); HEMOGLOBIN 9.9 gm/dL (14.0-18.0); MCHC 34.3 g/dL (28.0-37.0); MCV 90.4 fL (80.0-100.0); MPV 7.1 fl. (7.2-11.1); RBC 3.2 mil/uL (4.50-6.00); RDW-CV 13.8 % (10.5-14.5); WBC 8.6 thou/uL (4.0-11.0)
[2019-06-25 06:54] LABS: ALBUMIN 1.5 g/dL (3.4-5.0); CALCIUM 8.3 mg/dL (8.5-10.1); CREATININE 0.8 mg/dL (0.6-1.3); MAGNESIUM 1.8 mg/dL (1.8-2.4); POTASSIUM 4.2 mmol/L (3.5-5.1); TOTAL BILIRUBIN 0.2 mg/dL (<0.1-1.0); TOTAL PROTEIN 5.5 g/dL (6.4-8.2)
[2019-06-26] VITALS: BP 114/72
[2019-06-26 03:28] VITALS: BP 138/84
[2019-06-26 08:00] VITALS: BP 129/77
[2019-06-26 13:02] VITALS: BP 124/75
== END 2019-06-26 14:50 | DRG 853 ==
LOC: M.ERS 12:43 → M.TBA-ER 14:40 → M.ICU 14:40 → M.2W 06-12 18:15
PROVIDERS: Family Medicine; Internal Medicine; ADMIT Internal Medicine
PROC: 0Y6M0Z9 Detachment at Right Foot, Partial 1st Ray, Open Approach (ICD-10-PCS; 2019-06-10)
PROC: 0Y6R0Z0 Detachment at Right 2nd Toe, Complete, Open Approach (ICD-10-PCS; principal; 2019-06-13)
PROC: 0Y6H0Z1 Detachment at Right Lower Leg, High, Open Approach (ICD-10-PCS; 2019-06-17)
DX: A41.9 Sepsis, unspecified organism (principal); E43 Unspecified severe protein-calorie malnutrition; A48.0 Gas gangrene; L03.115 Cellulitis of right lower limb; E87.1 Hypo-osmolality and hyponatremia; L02.611 Cutaneous abscess of right foot; M86.8X7 Other osteomyelitis, ankle and foot; E11.52 Type 2 diabetes mellitus with diabetic peripheral angiopathy with gangrene; E11.21 Type 2 diabetes mellitus with diabetic nephropathy; R65.20 Severe sepsis without septic shock; E11.621 Type 2 diabetes mellitus with foot ulcer; L97.519 Non-pressure chronic ulcer of other part of right foot with unspecified severity; E11.69 Type 2 diabetes mellitus with other specified complication; K59.00 Constipation, unspecified; E11.65 Type 2 diabetes mellitus with hyperglycemia; Z28.21 Immunization not carried out because of patient refusal; Z68.31 Body mass index [BMI] 31.0-31.9, adult; Z79.899 Other long term (current) drug therapy; Z79.4 Long term (current) use of insulin

== ENCOUNTER 2019-09-10 18:22 | Observation (INO) | payer MEDICARE ==
[~2019-09-10] VITALS: Ht 177.8 cm; Wt 80.7 kg
[~2019-09-10 18:22] MED LIST: HUMALOG100 UNIT/1 SUBQ; HYDROCODON-ACE1 EAC7 PO; LANTUS SUBQ; NEURONTIN100 MG PO; PANTOPRAZOLE SO40 M1 PO; SENNA-TIME S T1 EACH PO
[2019-09-10 18:30] VITALS: BP 143/97
[2019-09-10] MEDS ORDERED: IBU800 MG PO (18:39)
[2019-09-10 19:01] LABS: ABSOLUTE BASOPHILS 0.1 thou/uL (0.0-0.2); ABSOLUTE EOSINOPHILS 0.1 thou/uL (0.0-0.7); ABSOLUTE LYMPHOCYTES 1.6 thou/uL (0.8-5.3); ABSOLUTE MONOCYTES 0.7 thou/uL (0.0-1.2); ABSOLUTE NEUTROPHILS 6.1 thou/uL (1.6-8.1); BASOPHILS 0.7 %; EOSINOPHILS 1.4 %; HEMATOCRIT 38.5 % (42.0-52.0); LYMPHOCYTES 19.1 %; MCH 30.9 pg (26.0-34.0); MCHC 33.8 g/dL (28.0-37.0); MCV 91.3 fL (80.0-100.0); MONOCYTES 7.9 %; MPV 7.8 fl. (7.2-11.1); NUCLEATED RBCS 0 /100WBC; PLATELET COUNT* 225 thou/uL (150-400); POLYS 70.9 %; RBC 4.22 mil/uL (4.50-6.00); RDW-CV 15.9 % (10.5-14.5); WBC 8.6 thou/uL (4.0-11.0)
[2019-09-10 19:10] LABS: CALCIUM 8.2 mg/dL (8.5-10.1); CREATININE 0.8 mg/dL (0.6-1.3); POTASSIUM 3.7 mmol/L (3.5-5.1)
[2019-09-10 19:14] LABS: TOTAL BILIRUBIN 0.5 mg/dL (<0.1-1.0); TOTAL PROTEIN 5.9 g/dL (6.4-8.2)
[2019-09-10 21:09] LABS: URINE BILIRUBIN NEGATIVE (Negative); URINE BLOOD NEGATIVE (Negative); URINE CLARITY CLEAR; URINE COLOR YELLOW; URINE GLUCOSE-RANDOM NEGATIVE (Negative); URINE KETONES NEGATIVE (Negative); URINE LEUKOCYTES-REFLEX NEGATIVE (Negative); URINE NITRITE-REFLEX NEGATIVE (Negative); URINE PROTEIN NEGATIVE (Negative); URINE UROBILINOGEN 0.2 E.U./dl (0.2-1.0)
[2019-09-10 22:20] LABS: APTT 26.7 Seconds (25.0-31.3); PROTIME 10.5 Seconds (9.20-11.50)
[2019-09-11 02:00] VITALS: BP 109/64
[2019-09-11 06:00] VITALS: BP 122/73
--- NOTE | 2019-09-11 06:30 | NUR ---
AM CARE COMPLETE BED/PT GOWN CHANGE
[2019-09-11 11:24] VITALS: BP 134/81
--- NOTE | 2019-09-11 12:43 | NUR ---
PT'S DAUGHTER, GIRMA BROWN [phone], IS LEAVING THE EMERGENCY DEPARTMENT BUT IS REQUESTING TO SPEAK TO HOSPITALIST ONCE AVAILABLE.
--- NOTE | 2019-09-11 14:06 | NUR ---
DR. JUAREZ HAS DECIDED PT MAY GO HOME. TELE NURSE ON WAY TO DISCHARGE PATIENT FROM ER AFTER DISCHARGE ORDERS ARE PUT IN.
[2019-09-11] MEDS ORDERED: LASIX 40 MG TAB40 MG PO (14:44)
[2019-09-11 14:57] VITALS: BP 132/81
--- NOTE | 2019-09-11 15:09 | NUR ---
PATIENT GIVEN DISCHARGE INSTRUCTIONS AT THIS TIME. DENIED ANY QUESTIONS. PATIENT WAITING FOR DAUGHTER FOR RIDE. PRESCRIPTION SENT ELECTRONICALLY TO PATIENT'S PHARMACY. REPORT GIVEN TO Vivi MARIE, WHO IS CARING FOR PATIENT.
[2019-09-11 15:24] VITALS: BP 132/81
--- NOTE | 2019-09-11 16:46 | EKG ---
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: [facility] : 1950 Requested By: Nagi Sigala Order Number: [id number] MD: Meño Kelly Measurements Intervals [place] Rate: 101 P: 16 [place]: 156 QRS: -6 QRSD: 84 T: 57 QT: 376 QTc: 488 Interpretive Statements Sinus tachycardia Borderline low voltage, extremity leads Borderline prolonged QT interval Compared to ECG 06/09/2019 12:56:37 Atrial abnormality no longer present Electronically Signed On 09-11-2019 16:44:54 CDT by Meño Kelly [email or web address] <ELECTRONICALLY SIGNED> By: Meño Kelly MD, [facility] 09/11/19 1644 25 25 Meño Kelly MD, [facility] /EPI
== END 2019-09-11 15:09 | disposition home or self-care (01) ==
LOC: M.ERS 18:22 → M.TBA-ER 21:37
PROVIDERS: Family Medicine; Personal Emergency Response Attendant; ADMIT Internal Medicine
DX: E11.43 Type 2 diabetes mellitus with diabetic autonomic (poly)neuropathy (principal); E11.10 Type 2 diabetes mellitus with ketoacidosis without coma; E11.621 Type 2 diabetes mellitus with foot ulcer; K31.84 Gastroparesis; R10.9 Unspecified abdominal pain; L03.115 Cellulitis of right lower limb; E87.1 Hypo-osmolality and hyponatremia; R53.1 Weakness; A41.9 Sepsis, unspecified organism; J90 Pleural effusion, not elsewhere classified

== ENCOUNTER → 2020-01-13 | Outpatient (CLI) | payer MEDICARE ==
[~2020-01-13] MED LIST changes: +IBU800 MG PO; +LASIX 40 MG TAB40 MG PO
[2020-01-13 10:57] LABS: CREATININE 0.9 mg/dL (0.6-1.3)
== END ==
LOC: M.LAB 10:00 → M.CT 11:00
PROVIDERS: ATTEND Family Medicine
DX: K76.0 Fatty (change of) liver, not elsewhere classified (principal); J90 Pleural effusion, not elsewhere classified; J98.11 Atelectasis; I51.7 Cardiomegaly; R18.8 Other ascites

== ENCOUNTER 2020-01-21 10:27 | Inpatient (IN) | payer MEDICARE ==
[~2020-01-21] VITALS: Ht 177.8 cm; Wt 83.7 kg
--- NOTE | ~2020-01-21 | H ---
[address] [address] HISTORY AND PHYSICAL Name: MIAH ORTEGA Room: [facility]- ADM IN M.R.#: [id number] Admission: 01/21/20 Attend Phys: Silvana Nieto Discharge: Date of : 52 Report #: [id number] THIS REPORT FOR: //name// cc: Carlos Mccann Bradley L. DO ~ THIS REPORT FOR: //name// For GI report, please see the Provation report in Perceptive 7 content. By: 1118Medical Records Staff JUDE /CHARLEY
[2020-01-21 10:43] VITALS: BP 138/84
[2020-01-21] MEDS ORDERED: LEXAPRO20 MG PO (10:46)
[2020-01-21 11:07] LABS: HEMATOCRIT 40.8 % (42.0-52.0); HEMOGLOBIN 13.7 gm/dL (14.0-18.0); MCH 31.2 pg (26.0-34.0); MCHC 33.7 g/dL (28.0-37.0); MCV 92.6 fL (80.0-100.0); MPV 9.3 fl. (7.2-11.1); NUCLEATED RBCS 0 /100WBC; PLATELET COUNT* 143 thou/uL (150-400); RDW-CV 14.6 % (10.5-14.5); WBC 12.1 thou/uL (4.0-11.0)
[2020-01-21 11:19] LABS: CALCIUM 8.1 mg/dL (8.5-10.1); POTASSIUM 3.1 mmol/L (3.5-5.1)
[2020-01-21 11:21] LABS: APTT 22.9 Seconds (25.0-31.3); INR 1.1; PROTIME 11.4 Seconds (9.20-11.50)
[2020-01-21 11:33] LABS: ALBUMIN 3.4 g/dL (3.4-5.0); CK-MB MASS 2.7 ng/mL (<0.5-3.6); MAGNESIUM 1.7 mg/dL (1.8-2.4); TOTAL PROTEIN 6.6 g/dL (6.4-8.2)
[2020-01-21 11:38] LABS: ABSOLUTE LYMPHOCYTES 0.7 thou/uL (0.8-5.3); ABSOLUTE MONOCYTES 0.4 thou/uL (0.0-1.2); ANISOCYTOSIS 1+; PLATELET ESTIMATE DECREASED; POIKILOCYTOSIS 1+
[2020-01-21 12:33] VITALS: BP 158/108
[2020-01-21 12:58] VITALS: BP 137/78
[2020-01-21 15:44] LABS: MAGNESIUM 1.8 mg/dL (1.8-2.4)
[2020-01-21 16:02] LABS: CALCIUM 8.2 mg/dL (8.5-10.1)
[2020-01-21 16:13] LABS: POTASSIUM 2.9 mmol/L (3.5-5.1)
--- NOTE | 2020-01-21 16:37 | 2DMMODE ---
[place] [address] 2 D/M-MODE ECHOCARDIOGRAM Name: MIAH ORTEGA Room: [address] IN ..#: [id number] Admission: 01/21/20 Attend Phys: Carole Aguiar Discharge: Date of : 52 Date of Service: 01/21/20 1636 Report #: [id number] THIS REPORT FOR: cc: Carlos Mccann Bradley L. DO Liston, Michael J. MD [facility] ~ APPROVED REPORT Study performed: 01/21/2020 15:43:39 EXAM: Comprehensive 2D, Doppler, and color-flow Echocardiogram Patient Location: In-Patient Room #: [facility] Status: routine BSA: 2.24 HR: 80 bpm BP: 137/78 mmHg Rhythm: NSR Other Information Study Quality: Good Indications RESPIRATORY FAILURE 2D Dimensions IVSd: 11.14 (7-11mm) LVOT Diam: 23.00 (18-24mm) LVDd: 49.60 mm PWd: 11.47 (7-11mm) Ascending Ao: 36.89 (22-36mm) LVDs: 35.49 (25-40mm) Aortic Root: 37.84 mm Volumes Left Atrial Volume (Systole) LA ESV Index: 32.80 mL/m2 Aortic Valve AoV Peak Girish.: 1.03 m/s AO Peak Gr.: 4.27 mmHg LVOT Max P.65 mmHg AO Mean Gr.: 2.59 mmHg LVOT Mean P.84 mmHg LVOT Max V: 0.64 m/s AO V2 VTI: 17.95 cm LVOT Mean V: 0.42 m/s ARIAN (VTI): 2.83 cm2 LVOT V1 VTI: 12.23 [place] [address] 2 D/M-MODE ECHOCARDIOGRAM Name: MIAH ORTEGA Room: [address] IN .R.#: [id number] Admission: 01/21/20 Attend Phys: Carole Aguiar Discharge: Date of : 52 Date of Service: 01/21/20 1636 Report #: [id number] Mitral Valve E/A Ratio: 2.30 MV Decel. Time: 149.18 ms MV E Max Girish.: 0.98 m/s MV PHT: 43.26 ms MVA (PHT): 5.09 cm2 TDI E/Lateral E': 9.80 E/Medial E': 14.00 Medial E' Girish.: 0.07 m/s Lateral E' Girish.: 0.10 m/s Pulmonary Valve PV Peak Girish.: 0.68 m/s PV Peak Gr.: 1.83 mmHg Tricuspid Valve RAP Estimate: 5.00 mmHg TR Peak Gr.: 26.52 mmHg RVSP: 31.00 mmHg PA Pressure: 31.00 mmHg Left Ventricle The left ventricle is normal size. There is global hypokinesis of the left ventricle. There is normal left ventricular wall thickness. Left ventricular systolic function is mildly decreased. LVEF is 45-50%. Transmitral Doppler flow pattern suggests restrictive physiology. Right Ventricle The right ventricle is normal size. The right ventricular systolic function is normal. Atria The left atrium size is normal. The right atrium size is normal. Aortic Valve Mild aortic valve sclerosis. Trace aortic regurgitation. There is no aortic valvular stenosis. Mitral Valve There is mitral annular calcification. Trace mitral regurgitation. No evidence of mitral valve stenosis. Tricuspid Valve The tricuspid valve is normal in structure. Trace tricuspid regurgitation. The RVSP is 30 [place] [address] 2 D/M-MODE ECHOCARDIOGRAM Name: MIAH ORTEGA Room: [address] IN [facility]#: [id number] Admission: 01/21/20 Attend Phys: Carole Aguiar Discharge: Date of : 52 Date of Service: 01/21/20 1636 Report #: [id number] Pulmonic Valve The pulmonary valve is normal in structure. There is no pulmonic valvular regurgitation. Great Vessels The aortic root is normal in size. IVC is normal in size and collapses >50% with inspiration. Pericardium There is no pericardial effusion. <Conclusion> The left ventricle is normal size. There is normal left ventricular wall thickness. Left ventricular systolic function is mildly decreased. LVEF is 45-50%. Transmitral Doppler flow pattern suggests restrictive physiology. There is global hypokinesis of the left ventricle. Mild aortic valve sclerosis. There is no aortic valvular stenosis. Trace mitral regurgitation. Trace tricuspid regurgitation. The RVSP is 30 mmHg. IVC is normal in size and collapses >50% with inspiration. <ELECTRONICALLY SIGNED> By: Denton Perez MD, FACC 01/21/20 1636 1636 1636 Denton Perez MD, FACC /INF
[2020-01-21 16:39] VITALS: BP 123/81
[2020-01-21] MEDS ORDERED: MIRALAX17 GM PO (16:58)
--- NOTE | 2020-01-21 17:38 | EKG ---
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: SARAH : 1950 Requested By: Nagi Sigala Order Number: [id number] MD: Denton Perez Measurements Intervals [place] Rate: 87 P: 20 [place]: 165 QRS: 11 QRSD: 83 T: QT: 479 QTc: 577 Interpretive Statements Sinus rhythm Low voltage, extremity leads Prolonged QT interval Compared to ECG 09/10/2019 19:26:14 Sinus tachycardia no longer present Electronically Signed On 01-21-2020 17:37:49 CDT by Denton Perez [email or web address] <ELECTRONICALLY SIGNED> By: Denton Perez MD, FACC 01/21/20 1737 1119 1119 Denton Perez MD, [facility] /EPI
[2020-01-21 17:46] LABS: URINE BILIRUBIN NEGATIVE (Negative); URINE BLOOD 2+ (Negative); URINE CLARITY CLEAR; URINE COLOR YELLOW; URINE GLUCOSE-RANDOM NEGATIVE (Negative); URINE KETONES NEGATIVE (Negative); URINE LEUKOCYTES NEGATIVE (Negative); URINE NITRITE NEGATIVE (Negative); URINE PROTEIN NEGATIVE (Negative); URINE UROBILINOGEN 0.2 E.U./dl (0.2-1.0)
[2020-01-21 17:47] LABS: BACTERIA None Seen /HPF (None Seen); SQUAMOUS 4-10 Moderate /LPF (0-3); URINE RBC 3-10 Few /HPF (0-2); URINE WBC None Seen /HPF (0-5)
[2020-01-21 17:48] LABS: CASTS None Seen /LPF (None Seen); CRYSTALS None Seen /LPF (None Seen)
[2020-01-21 20:00] VITALS: BP 125/75
[2020-01-22] VITALS: BP 104/64
[2020-01-22 04:00] VITALS: BP 107/72
[2020-01-22 05:13] LABS: ANION GAP 1 mmol/L (7-16); BUN 22 mg/dL (7-18); CALCIUM 8.3 mg/dL (8.5-10.1); CHLORIDE 105 mmol/L (98-107); CHOLESTEROL 97 mg/dL (<200); CO2 34 mmol/L (21-32); GLUCOSE 127 mg/dL (70-99); HDL CHOLESTEROL 42 mg/dL (>40); LDL CHOLESTEROL 49 mg/dL (<100); POTASSIUM 3.6 mmol/L (3.5-5.1); SODIUM 140 mmol/L (136-145); TC:HDL 2.3 Ratio (Not establshd); TRIGLYCERIDE 30 mg/dL (<150); VLDL 6 mg/dL (<40)
[2020-01-22 05:23] LABS: SERUM ASSESSMENT CLEAR
[2020-01-22 08:00] VITALS: BP 115/74
[2020-01-22 12:00] VITALS: BP 121/76
[2020-01-22 16:00] VITALS: BP 107/72
[2020-01-22 20:00] VITALS: BP 125/78
[2020-01-23 01:00] VITALS: BP 118/81
[2020-01-23 04:00] VITALS: BP 130/79
[2020-01-23 05:20] LABS: HEMATOCRIT 38.6 % (42.0-52.0); HEMOGLOBIN 13.1 gm/dL (14.0-18.0); MCH 31.8 pg (26.0-34.0); MCV 93.5 fL (80.0-100.0); MPV 10.1 fl. (7.2-11.1); RBC 4.13 mil/uL (4.50-6.00); RDW-CV 14.7 % (10.5-14.5); WBC 8.6 thou/uL (4.0-11.0)
[2020-01-23 05:26] LABS: ALBUMIN 3.2 g/dL (3.4-5.0); CALCIUM 8.3 mg/dL (8.5-10.1); CREATININE 1.1 mg/dL (0.6-1.3); TOTAL BILIRUBIN 0.9 mg/dL (<0.1-1.0); TOTAL PROTEIN 6.4 g/dL (6.4-8.2)
[2020-01-23 08:00] VITALS: BP 133/81
[2020-01-23 17:06] LABS: HEPATITIS B SURFACE AG Negative (Negative)
[2020-01-23 17:08] VITALS: BP 118/70
[2020-01-23 20:00] VITALS: BP 105/65
[2020-01-24] VITALS: BP 104/67
[2020-01-24 04:00] VITALS: BP 106/81
[2020-01-24 04:44] LABS: HEMATOCRIT 38.4 % (42.0-52.0); HEMOGLOBIN 13.1 gm/dL (14.0-18.0); MCH 31.7 pg (26.0-34.0); MCHC 34.1 g/dL (28.0-37.0); MCV 92.9 fL (80.0-100.0); MPV 9.8 fl. (7.2-11.1); RBC 4.14 mil/uL (4.50-6.00); RDW-CV 15.1 % (10.5-14.5); WBC 6.2 thou/uL (4.0-11.0)
[2020-01-24 05:04] LABS: CALCIUM 8.2 mg/dL (8.5-10.1); CREATININE 1.1 mg/dL (0.6-1.3); POTASSIUM 4.1 mmol/L (3.5-5.1); TOTAL BILIRUBIN 0.7 mg/dL (<0.1-1.0); TOTAL PROTEIN 6.2 g/dL (6.4-8.2)
[2020-01-24 08:00] VITALS: BP 121/77
[2020-01-24 16:00] VITALS: BP 104/67
[2020-01-24 21:00] VITALS: BP 107/72
[2020-01-25] VITALS: BP 101/68
[2020-01-25 04:00] VITALS: BP 118/70
[2020-01-25 04:05] LABS: GLYCOHEMOGLOBIN (HGB A1C) 5.7 % (4.8-5.6)
[2020-01-25 04:29] LABS: CALCIUM 8.7 mg/dL (8.5-10.1); CREATININE 1.1 mg/dL (0.6-1.3); POTASSIUM 4.6 mmol/L (3.5-5.1)
[2020-01-25 07:40] VITALS: BP 121/81
[2020-01-25 10:06] LABS: ANA INTERPRETATION Negative (Negative)
[2020-01-25 13:40] VITALS: BP 112/68
[2020-01-25 17:45] VITALS: BP 115/68
[2020-01-26] VITALS (7 sets, daily range): BP systolic 117–130; BP diastolic 69–86
[2020-01-26 04:56] LABS: HEMATOCRIT 39.4 % (42.0-52.0); HEMOGLOBIN 13.4 gm/dL (14.0-18.0); MCH 31.4 pg (26.0-34.0); MCHC 33.9 g/dL (28.0-37.0); MCV 92.6 fL (80.0-100.0); MPV 10.1 fl. (7.2-11.1); RBC 4.26 mil/uL (4.50-6.00); RDW-CV 14.4 % (10.5-14.5); WBC 6.9 thou/uL (4.0-11.0)
[2020-01-26 05:31] LABS: ALBUMIN 2.8 g/dL (3.4-5.0); CALCIUM 8.2 mg/dL (8.5-10.1); CREATININE 1.1 mg/dL (0.6-1.3); MAGNESIUM 1.9 mg/dL (1.8-2.4); POTASSIUM 4.6 mmol/L (3.5-5.1); TOTAL BILIRUBIN 0.6 mg/dL (<0.1-1.0); TOTAL PROTEIN 5.9 g/dL (6.4-8.2)
[2020-01-27] VITALS: BP 112/69
[2020-01-27 03:43] LABS: HEMATOCRIT 39.5 % (42.0-52.0); HEMOGLOBIN 13.5 gm/dL (14.0-18.0); MCH 31.4 pg (26.0-34.0); MCHC 34.3 g/dL (28.0-37.0); MCV 91.6 fL (80.0-100.0); MPV 9.5 fl. (7.2-11.1); RBC 4.31 mil/uL (4.50-6.00); RDW-CV 14.7 % (10.5-14.5); WBC 6.6 thou/uL (4.0-11.0)
[2020-01-27 03:57] LABS: ALBUMIN 2.7 g/dL (3.4-5.0); CALCIUM 8.7 mg/dL (8.5-10.1); MAGNESIUM 2.2 mg/dL (1.8-2.4); POTASSIUM 4.1 mmol/L (3.5-5.1); TOTAL BILIRUBIN 0.8 mg/dL (<0.1-1.0); TOTAL PROTEIN 5.8 g/dL (6.4-8.2)
[2020-01-27 04:00] VITALS: BP 124/73
[2020-01-27 07:45] VITALS: BP 135/82
[2020-01-27 11:45] VITALS: BP 113/67
[2020-01-27 12:14] LABS: BF RBC <1000 /mm3; TOTAL CELL COUNT 184 /mm3
[2020-01-27 12:34] LABS: BF LYMPHOCYTES 41 %; BF MONOCYTES 57 %; BF POLYS 2 %
[2020-01-27 12:35] LABS: CLARITY CLEAR; SOURCE PLEURAL FLUID; TOTAL VOLUME 2100 ml
[2020-01-27] MEDS ORDERED: MELATONIN5 MG PO (13:10)
[2020-01-27] MEDS ORDERED: IBUPROFEN 800800 M1 PO (13:11)
[2020-01-27] MEDS ORDERED: ASA81BEC PO (13:12)
[2020-01-27 18:27] VITALS: BP 96/66
[2020-01-27 20:40] VITALS: BP 105/61
[2020-01-27 20:57] LABS: CALCIUM 8.5 mg/dL (8.5-10.1); CREATININE 1.2 mg/dL (0.6-1.3); POTASSIUM 4.2 mmol/L (3.5-5.1)
[2020-01-28] VITALS: BP 98/54
[2020-01-28 04:00] VITALS: BP 102/62
[2020-01-28 04:23] LABS: HEMATOCRIT 37.8 % (42.0-52.0); MCH 31.3 pg (26.0-34.0); MCHC 34.3 g/dL (28.0-37.0); MCV 91.2 fL (80.0-100.0); MPV 9.8 fl. (7.2-11.1); RBC 4.14 mil/uL (4.50-6.00); RDW-CV 14.2 % (10.5-14.5); WBC 6.4 thou/uL (4.0-11.0)
[2020-01-28 05:02] LABS: ALBUMIN 2.5 g/dL (3.4-5.0); CREATININE 1.2 mg/dL (0.6-1.3); TOTAL BILIRUBIN 0.6 mg/dL (<0.1-1.0); TOTAL PROTEIN 5.5 g/dL (6.4-8.2)
[2020-01-28 05:08] LABS: MAGNESIUM 2.1 mg/dL (1.8-2.4)
[2020-01-28 08:07] LABS: CERULOPLASMIN 29.8 mg/dL (16.0-31.0)
[2020-01-28 08:38] VITALS: BP 117/70
[2020-01-28 12:38] VITALS: BP 107/65
--- NOTE | 2020-01-28 13:12 | PATH ---
[address] [address] PATHOLOGY RPT PROCEDURE Name: MIAH BLANTON Room: [address] ADM IN M.R.#: [id number] Admission: 01/21/20 Date of : 52 Discharge: Report #: [id number] Path Case #: [id number] [facility] Accession Number: [id number] . 01 Material submitted: . stomach - GASTRIC BIOPSY . 01 Clinical history: . For H. pylori; respiratory failure; pleural effusions . 02 Diagnosis: Stomach "gastric", endoscopic biopsy: - Gastric antral and oxyntic mucosa with features of reactive gastropathy. - Negative for active inflammation, intestinal metaplasia, dysplasia, and malignancy. - NEGATIVE for Helicobacter pylori. (ADRIANK:manuel; 01/27/2020) QMS 01/28/2020 1210 Local . 02 Electronically signed: . Tima Shanks MD, Pathologist NPI- [id number] . 01 Gross description: . The specimen is received in formalin, labeled "Miah Blanton, gastric biopsy". Received is a segment of pale patel soft tissue measuring 0.4 cm in maximum dimensions. The specimen is submitted entirely in cassette A1. (CAA; 01/26/2020) QAC/QAC 01/26/2020 1707 Local . 02 Microscopic: . Immunohistochemical stain results (block A1): . - Helicobacter pylori - negative for organisms . (MLK:manuel; 01/27/2020) . 02 Pathologist provided ICD-10: J96.90, J90 . 02 CPT . 654756, P47310 Specimen Comment: A courtesy copy of this report has been sent to [phone] Specimen Comment: [phone], Specimen Comment: Report sent to ,DR JUAREZ / DR DOBBS Performed at: 01 [place] [address] PATHOLOGY RPT PROCEDURE Name: MIAH BLANTON Room: [address] ADM IN ..#: [id number] Admission: 01/21/20 Date of : 52 Discharge: Report #: [id number] Path Case #: [id number] [facility] [place] [address] [place] [address] [address], [place], [place] [id number] MD Anderson Jacques MD Phone: [phone] Performed at: 02 [facility] [address], [place], [place] [id number] MD Mike Alvarez MD Phone: [phone]
[2020-01-28 16:45] VITALS: BP 98/59
[2020-01-29] VITALS: BP 96/58
[2020-01-29 04:00] VITALS: BP 115/66
[2020-01-29 05:04] LABS: MCH 31.2 pg (26.0-34.0); MCV 91.7 fL (80.0-100.0); MPV 9.9 fl. (7.2-11.1); RBC 4.47 mil/uL (4.50-6.00); RDW-CV 14.4 % (10.5-14.5); WBC 7.4 thou/uL (4.0-11.0)
[2020-01-29 05:34] LABS: ALBUMIN 2.7 g/dL (3.4-5.0); CREATININE 1.3 mg/dL (0.6-1.3); MAGNESIUM 2.1 mg/dL (1.8-2.4); POTASSIUM 4.1 mmol/L (3.5-5.1); TOTAL BILIRUBIN 0.7 mg/dL (<0.1-1.0)
[2020-01-29 05:41] LABS: CALCIUM 8.6 mg/dL (8.5-10.1)
--- NOTE | 2020-01-29 11:23 | CON ---
[address] [address] CONSULTATION Name: MIAH ORTEGA Room: [address] ADM IN M.R.#: [id number] Admission: 01/21/20 Attend Phys: Silvana Nieto Discharge: Date of : 52 Report #: [id number] THIS REPORT FOR: //name// cc: Carlos Mccann Bradley L. DO THIS REPORT FOR: //name// CC: Carlos Sifuentes DICTATED BY: Andreea Fierro [facility] DATE OF SERVICE: 01/22/2020 Please note at the time of this dictation, the patient was seen and physically examined by myself. REASON FOR CONSULTATION: Ascites. HISTORY OF PRESENT ILLNESS: This is a 69-year-old male who went to his primary care provider because he was having increased weight gain with some shortness of breath when he went to bend over. He noticed that his abdominal girth was getting bigger, which was concerning to him, prompting him to go for further evaluation. His primary care provider ordered a CT scan of the abdomen and pelvis that showed anasarca with some ascitic fluid noted, cirrhosis with fatty liver infiltrates. This was the first the patient has ever been told of this in regards to cirrhosis. The patient states a remote history back when he is probably 20s and 30s, he was a heavy drinker. He has since stopped and has not drank anything except maybe on a rare occasion socially. He denies tobacco use at that time as well. He denies any illicit drug use or ever having any blood transfusions in the past. He does not recall ever being tested for hepatitis either and we will do that today as well. He had a remote colonoscopy done at [facility] which has been 20+ years ago and he does not recall what it showed. ALLERGIES: No known drug allergies. MEDICATIONS: From home include Lantus, Humalog, Lasix 40 mg, Lexapro, and Neurontin. PAST MEDICAL HISTORY: Type 2 diabetes, right BKA. PAST SURGICAL HISTORY: Tonsil and adenoidectomy. FAMILY HISTORY: Significant for father, colon cancer in [place] 60s[place] [address] CONSULTATION Name: MIAH ORTEGA Room: [address] IN ..#: [id number] Admission: 01/21/20 Attend Phys: Silvana Nieto Discharge: Date of : 52 Report #: [id number] SOCIAL HISTORY: Denies any alcohol except on special occasions. Denies any tobacco use or any illegal drug use. REVIEW OF SYSTEMS: Twelve-point review of systems is essentially negative except what is mentioned in the HPI. PHYSICAL EXAMINATION: VITAL SIGNS: Temperature 36.7, pulse 67, respirations 20, blood pressure 115/74. HEART: Regular rate and rhythm. LUNGS: Diminished with a few crackles noted. ABDOMEN: Distended, but soft. Fluid wave noted. Positive bowel sounds and just some generalized discomfort noted to palpation. LABORATORY DATA: Hemoglobin is 13.7, white count is 12.1, platelets 143. PT is 11.4, INR 1.1, GFR is 74, total bilirubin 1, alkaline phosphatase 120, ALT 30, AST is 23, total protein is 6.6, albumin is 3.4. His lipase was 50 and he had a BNP of [address] done on outpatient basis showed the anasarca with cirrhosis and fatty liver infiltration. He did have a chest x-ray that showed some moderate bibasilar atelectasis on admission. IMPRESSION: 1. Ascites. 2. Anasarca noted on CT. 3. Weight gain greater than 50 pounds. 4. Cirrhosis, newly diagnosed. 5. Leukocytosis. 6. Thrombocytopenia. 7. Family history of colon cancer in first-degree relative, father. 8. History of alcohol abuse remotely. PLAN: 1. Paracentesis today with IR with culture and sensitivity, cytology, fluid for albumin and total protein. 2. EGD and colonoscopy in the a.m. with Dr. Whiteside for surveillance of esophageal varices and colon for surveillance as well. 3. The patient will get started on diuretics. We will likely add spironolactone 100 mg daily to his Lasix 40 mg daily after his procedure tomorrow. 4. We will obtain labs including acute hepatitis panel, AFP, alpha-1 antitrypsin, LUBNA, ASMA, AMA, GGTP and repeat CBC and CMP in the a.m. 5. Further recommendations to be made once the above have all been performed. Thank you for allowing us to participate in this patient's care. Please do not hesitate to call with any questions in regard to this consult. [address] [address] CONSULTATION Name: MIAH ORTEGA Room: M.206-P ADM IN M.R.#: [id number] Admission: 01/21/20 Attend Phys: Silvana Nieto Discharge: Date of : 52 Report #: [id number] Agree with above assessment and plan by Andreea Fierro <ELECTRONICALLY SIGNED> By: Maciel Whiteside MD 01/29/20 1123 1148 1222Maciel Whiteside MD /nt
[2020-01-29 12:57] VITALS: BP 100/63
--- NOTE | 2020-01-29 16:06 | PATH ---
[address] [address] PATHOLOGY RPT PROCEDURE Name: MIAH ORTEGA Room: [address] ADM IN .R.#: [id number] Admission: 01/21/20 Date of : 52 Discharge: Report #: [id number] Path Case #: [id number] Note [facility] Accession Number: [id number] TESTS RESULT FLAG UNITS REF RANGE LAB Clinician Provided Cytology Information No. of containers..01 Other (Miscellaneous) Source: 01 R. PLEURAL DIAGNOSIS: 02 R. PLEURAL NEGATIVE FOR MALIGNANT CELLS. MESOTHELIAL CELLS ARE PRESENT. SCANT CELLULARITY. Signed out by: 02 Jesús Reyes MD, Pathologist NPI- [id number] Performed by: 01 Teodoro Reza, Tube Bender Hand ([facility]) Gross description: 01 20 ML, CLOUDY YELLOW, 1 TP 1CB /LCS 01/28/2020 0737 Local FLAG LEGEND: L-Low Normal,H-High Normal,LL-Alert Low,HH-Alert High <-Panic Low,>-Panic High,A-Abnormal,AA-Critical Abnormal Performed at: [address] [place] [address] Anderson Jacques MD, [address] [place] [id number] Jerome Jernigan MD, Specimen Comment: A courtesy copy of this report has been sent to [phone] Specimen Comment: [phone] Specimen Comment: Report sent to DR JUAREZ / DR DOBBS Specimen Comment: A duplicate report has been generated due to demographic updates. Performed at: [address], [place], [place] [id number] MD Anderson Jacques MD Phone: [phone]
[2020-01-29 16:35] VITALS: BP 109/70
[2020-01-29 19:20] VITALS: BP 109/59
[2020-01-30] VITALS: BP 100/67
[2020-01-30 04:00] VITALS: BP 126/71
[2020-01-30 05:11] LABS: HEMATOCRIT 42.9 % (42.0-52.0); HEMOGLOBIN 14.6 gm/dL (14.0-18.0); MCV 91.1 fL (80.0-100.0); MPV 8.7 fl. (7.2-11.1); RBC 4.71 mil/uL (4.50-6.00); RDW-CV 14.2 % (10.5-14.5); WBC 8.4 thou/uL (4.0-11.0)
[2020-01-30 05:22] LABS: CREATININE 1.3 mg/dL (0.6-1.3); MAGNESIUM 2.1 mg/dL (1.8-2.4); POTASSIUM 4.6 mmol/L (3.5-5.1)
[2020-01-30 08:00] VITALS: BP 123/75
[2020-01-30 11:48] VITALS: BP 101/61
[2020-01-30 16:36] VITALS: BP 110/68
[2020-01-30 16:52] LABS: SOURCE PLEURAL
[2020-01-30 20:00] VITALS: BP 113/71
[2020-01-31] VITALS: BP 112/67
[2020-01-31 03:41] LABS: HEMATOCRIT 40.9 % (42.0-52.0); HEMOGLOBIN 14.1 gm/dL (14.0-18.0); MCH 31.1 pg (26.0-34.0); MCHC 34.4 g/dL (28.0-37.0); MCV 90.4 fL (80.0-100.0); MPV 8.8 fl. (7.2-11.1); RBC 4.53 mil/uL (4.50-6.00); RDW-CV 14.4 % (10.5-14.5); WBC 6.9 thou/uL (4.0-11.0)
[2020-01-31 03:58] LABS: ALBUMIN 2.6 g/dL (3.4-5.0); CALCIUM 8.5 mg/dL (8.5-10.1); CREATININE 1.1 mg/dL (0.6-1.3); MAGNESIUM 2.1 mg/dL (1.8-2.4); POTASSIUM 4.3 mmol/L (3.5-5.1); TOTAL BILIRUBIN 0.7 mg/dL (<0.1-1.0)
[2020-01-31 04:00] VITALS: BP 122/75
[2020-01-31 08:00] VITALS: BP 124/82
[2020-01-31 11:20] VITALS: BP 119/80
[2020-01-31 16:22] VITALS: BP 108/66
[2020-01-31 20:20] VITALS: BP 116/65
[2020-02-01] VITALS: BP 121/79
[2020-02-01 04:00] VITALS: BP 132/77
[2020-02-01 05:09] LABS: CALCIUM 8.5 mg/dL (8.5-10.1); CREATININE 1.2 mg/dL (0.6-1.3); MAGNESIUM 2.1 mg/dL (1.8-2.4); POTASSIUM 4.5 mmol/L (3.5-5.1)
[2020-02-01 08:00] VITALS: BP 136/77
[2020-02-01] MEDS ORDERED: COZAAR 25 MG TA25 M1 PO (08:18)
[2020-02-01] MEDS ORDERED: LEVAQUIN 500 M500 M1 PO (08:18)
[2020-02-01] MEDS ORDERED: LANTUS SUBQ (08:18)
[2020-02-01] MEDS ORDERED: TOPROL XL50 MG PO (08:18)
[2020-02-01] MEDS ORDERED: BUMETANIDE 1 MG1 M1 PO (08:18)
[2020-02-01] MEDS ORDERED: TRAMADOL 50 MG50 MG PO (08:18)
[2020-02-01 17:49] VITALS: BP 117/45
[2020-02-01 17:50] VITALS: BP 102/61
[2020-02-01 20:00] VITALS: BP 118/68
[2020-02-02] VITALS: BP 100/65
[2020-02-02 04:00] VITALS: BP 100/54
[2020-02-02 08:00] VITALS: BP 114/69
[2020-02-02 12:06] LABS: BODY FLUID CREATININE 0.8 mg/dL (Not Estab.)
[2020-02-02 12:43] VITALS: BP 112/66
[2020-02-02 16:52] VITALS: BP 113/68
[2020-02-02 19:50] VITALS: BP 110/66
[2020-02-03] VITALS: BP 108/66
[2020-02-03 04:00] VITALS: BP 116/60
[2020-02-03 08:00] VITALS: BP 108/72
[2020-02-03 09:44] VITALS: BP 108/72
[2020-02-03 12:35] LABS: SOURCE PLEURAL
== END 2020-02-03 16:30 | DRG 177 ==
LOC: M.ERS 10:27 → M.2W 11:47 → M.TBA-ER 11:47 → M.2W 13:01
PROVIDERS: Family Medicine; Internal Medicine; Nurse Practitioner Adult Health; Registered Nurse; ADMIT Internal Medicine; ATTEND Internal Medicine
PROC: 0DB78ZX Excision of Stomach, Pylorus, Via Natural or Artificial Opening Endoscopic, Diagnostic (ICD-10-PCS; principal; 2020-01-23)
PROC: 0DJD8ZZ Inspection of Lower Intestinal Tract, Via Natural or Artificial Opening Endoscopic (ICD-10-PCS; principal; 2020-01-23)
PROC: 0W993ZZ Drainage of Right Pleural Cavity, Percutaneous Approach (ICD-10-PCS; 2020-01-27)
PROC: 0W9B3ZZ Drainage of Left Pleural Cavity, Percutaneous Approach (ICD-10-PCS; 2020-01-28)
DX: J15.6 Pneumonia due to other Gram-negative bacteria (principal); I50.43 Acute on chronic combined systolic (congestive) and diastolic (congestive) heart failure; J96.01 Acute respiratory failure with hypoxia; J91.8 Pleural effusion in other conditions classified elsewhere; I42.8 Other cardiomyopathies; R18.8 Other ascites; R65.10 Systemic inflammatory response syndrome (SIRS) of non-infectious origin without acute organ dysfunction; E87.1 Hypo-osmolality and hyponatremia; K74.60 Unspecified cirrhosis of liver; I11.0 Hypertensive heart disease with heart failure; D69.6 Thrombocytopenia, unspecified; E11.51 Type 2 diabetes mellitus with diabetic peripheral angiopathy without gangrene; E80.6 Other disorders of bilirubin metabolism; K76.0 Fatty (change of) liver, not elsewhere classified; Z20.828 Contact with and (suspected) exposure to other viral communicable diseases; K25.9 Gastric ulcer, unspecified as acute or chronic, without hemorrhage or perforation; J44.9 Chronic obstructive pulmonary disease, unspecified; F32.9 Major depressive disorder, single episode, unspecified; K29.70 Gastritis, unspecified, without bleeding; E87.6 Hypokalemia; K62.89 Other specified diseases of anus and rectum; K64.4 Residual hemorrhoidal skin tags; E66.01 Morbid (severe) obesity due to excess calories; Z79.4 Long term (current) use of insulin; Z89.511 Acquired absence of right leg below knee; Z90.49 Acquired absence of other specified parts of digestive tract; Z80.0 Family history of malignant neoplasm of digestive organs; Z68.25 Body mass index [BMI] 25.0-25.9, adult

== ENCOUNTER → 2020-02-15 | Outpatient (CLI) | payer MEDICARE ==
[~2020-02-15] MED LIST changes: +ASA81BEC PO; +BUMETANIDE 1 MG1 M1 PO; +COZAAR 25 MG TA25 M1 PO; +IBUPROFEN 800800 M1 PO; +LEVAQUIN 500 M500 M1 PO; +LEXAPRO20 MG PO; +MELATONIN5 MG PO; +MIRALAX17 GM PO; +TOPROL XL50 MG PO; +TRAMADOL 50 MG50 MG PO
[2020-02-15 12:29] LABS: CALCIUM 8.7 mg/dL (8.5-10.1); CREATININE 1.1 mg/dL (0.6-1.3); POTASSIUM 3.9 mmol/L (3.5-5.1); TOTAL BILIRUBIN 0.8 mg/dL (<0.1-1.0); TOTAL PROTEIN 6.6 g/dL (6.4-8.2)
== END ==
LOC: M.LAB 11:36
PROVIDERS: ATTEND Registered Nurse
DX: I50.42 Chronic combined systolic (congestive) and diastolic (congestive) heart failure (principal)

== ENCOUNTER → 2020-02-26 | Outpatient (CLI) | payer MEDICARE ==
--- NOTE | 2020-02-26 16:27 | CARDNUC ---
[place] [address] CARDIAC NUCLEAR IMAGING REPORT Name: MIAH ORTEGA Room: [facility]#: [id number] Admission: 02/26/20 Attend Phys: Denton Perez, Discharge: Date of : 52 Date of Service: 02/26/20 1626 Report #: [id number] THIS REPORT FOR: cc: Carlos Mccann Bradley L. DO Liston,Denton Stanton MD [facility] ~ APPROVED REPORT Imaging Protocol: Stress Tc-99m/Rest Tc-99m 1 day Study performed: 02/26/2020 12:15:00 Indication: Chest pain, Cardiomyopathy Patient Location: Out-Patient Stress Tech: Shira Bell Stress Nurse: Suri Almanzar RN Ht: 5 ft 10 in Wt: 190 lbs BSA: 2.04 m2 BMI: 27.25 Medical History Medical History: Cardiomyopathy, Diabetic Insulin, HTN Medications: asa 81, bumetanide, losartan, metoprolol Allergies: No known drug allergies Cardiac Risk Factors: Age, Diabetes (insulin), FHX of CAD, HTN Exercise History: Indeterminate Meds Held (24 hrs): metoprolol Resting Data Rest SPECT myocardial perfusion imaging was performed in supine position 30 minutes following the intravenous injection of 9.2 mCi of Tc-99m Sestamibi. Time of rest injection: 1320 The images were gated to evaluate regional wall motion and calculate left ventricular ejection fraction. Administration Route: IV Administration Site: Right AC Pharmacologic Stress Pharmacologic stress test was performed by injecting Regadenoson 0.4 mg IV push over 10-15 seconds immediately followed by the intravenous injection of 31.0 mCi of Tc-99m Sestamibi. Time of stress injection: 1510 Administration Route: [place] [address] CARDIAC NUCLEAR IMAGING REPORT Name: MIAH ORTEGA [id number] Admission: 02/26/20 Attend Phys: Denton Perez, Discharge: Date of : 52 Date of Service: 02/26/20 1626 Report #: [id number] Administration Site: Right AC Heart Rate at time of stress injection: 79 bpm. Gated Stress SPECT was performed 40 minutes after stress injection. The images were gated to evaluate regional wall motion and calculate left ventricular ejection fraction. Stress Test Details Stress Test: Pharmacologic stress testing performed using 0.4 mg of regadenoson per 5 mL given IV over 10 seconds. Reason for pharmacologic stress test: physical limitation. HR Max Heart Rate (APMHR): 152 bpm Resting HR: 69 bpm Target HR (85% APMHR): 129 bpm Max HR Achieved: 79 bpm % of APMHR: 51 Recovery HR: 85 bpm BP Resting BP: 125/70 mmHg Max BP: 128/63 mmHg Recovery BP: 133/72 mmHg ECG Resting ECG: Sinus Rhythm Stress ECG: Sinus Rhythm ST Change: None Arrhythmia: None Recovery ECG: Sinus Rhythm Recovery ST Change: None Recovery Arrhythmia: None Clinical Reason for Termination: Completed protocol The patient tolerated Lexiscan infusion without significant cardiac symptoms. Nurse Comments pt has bka and is unable to walk on treadmill Stress ECG Conclusion The baseline twelve-lead EKG shows sinus rhythm without significant ST segment or T wave abnormality. EKGs obtained during and post Lexiscan infusion show sinus rhythm with no significant ST segment or T wave changes when compared to baseline. There were no stress[place] [address] CARDIAC NUCLEAR IMAGING REPORT Name: VARUNMARCIAMIAH Room: [facility]#: [id number] Admission: 02/26/20 Attend Phys: Denton Perez, Discharge: Date of : 52 Date of Service: 02/26/20 1626 Report #: [id number] Study Quality Study: Good Artifact: Mild Diaphragmatic artifact Study Data At rest, the left ventricular ejection fraction was 34%.. Post stress, the left ventricular ejection was 32%.. TID = 1.04. Perfusion Perfusion images show a moderate region of photopenia to a moderate degree involving the inferior wall that is mildly reversible suggesting ischemia. The midportion of this defect in the middle inferior wall appears fixed possibly suggesting prior infarct. Additionally there is a moderate size reversible defect noted in the basal to mid lateral wall consistent with ischemia. Wall Motion Global LV systolic function is severely decreased. There is hypokinesis of the mid to distal lateral wall as well as the mid to distal inferior wall. Nuclear Conclusion ECG Findings: negative for ischemia Clinical Findings: negative for ischemia Nuclear Findings: positive for ischemia Exercise Capacity: not assessed Left Ventricular Function: abnormal Risk Study: high Perfusion images suggest possible prior infarct of the inferior wall with stress-induced ischemia of the lateral wall. Left ventricular systolic function is severely decreased. There are wall motion abnormalities noted as outlined above. This is a high risk study. <Conclusion> The baseline twelve-lead EKG shows sinus rhythm without significant ST segment or T wave abnormality. EKGs obtained during and post Lexiscan infusion show sinus rhythm with no significant ST segment or T wave changes when compared to baseline. There were no stress-induced arrhythmias. <ELECTRONICALLY SIGNED> By: Denton Perez MD, FACC 02/26/20 1626 1626 1626 Denton Perez MD, FACC /INF
== END ==
LOC: M.NUC 02-15 15:29
PROVIDERS: ATTEND Internal Medicine Cardiovascular Disease
DX: I50.42 Chronic combined systolic (congestive) and diastolic (congestive) heart failure (principal)

== ENCOUNTER 2020-03-14 07:51 | Observation (INO) | payer MEDICARE ==
[~2020-03-14] VITALS: Ht 177.8 cm; Wt 86.6 kg
[2020-03-14] VITALS (22 sets, daily range): BP systolic 121–175; BP diastolic 62–82
--- NOTE | ~2020-03-14 | H ---
[address] [address] HISTORY AND PHYSICAL Name: MIAH ORTEGA Room: [address] Ursula Owens#: [id number] Admission: 03/14/20 Attend Phys: Meño Kelly MD, Discharge: 03/15/20 Date of : 52 Report #: [id number] THIS REPORT FOR: //name// cc: Carlos Mccann Bradley L. DO ~ Please refer to the History and Physical performed in the physician's office. By: [id number] Records Staff [facility] /[place]
[2020-03-14 08:49] LABS: APTT 24.5 Seconds (25.0-31.3); PROTIME 10.4 Seconds (9.20-11.50)
[2020-03-14 08:52] LABS: ANION GAP 3 mmol/L (7-16); BUN 32 mg/dL (7-18); CALCIUM 8.3 mg/dL (8.5-10.1); CHLORIDE 101 mmol/L (98-107); CO2 33 mmol/L (21-32); CREATININE 1.2 mg/dL (0.6-1.3); GLUCOSE 164 mg/dL (70-99); POTASSIUM 4.3 mmol/L (3.5-5.1); SODIUM 137 mmol/L (136-145)
[2020-03-14 08:57] LABS: ALBUMIN 3.1 g/dL (3.4-5.0); ALKALINE PHOSPHATASE 136 U/L (46-116); CHOLESTEROL 166 mg/dL (<200); HDL CHOLESTEROL 42 mg/dL (>40); HEMOGLOBIN 13.8 gm/dL (14.0-18.0); LDL CHOLESTEROL 113 mg/dL (<100); MCH 30.4 pg (26.0-34.0); MCHC 34.4 g/dL (28.0-37.0); MCV 88.6 fL (80.0-100.0); MPV 8.3 fl. (7.2-11.1); RBC 4.52 mil/uL (4.50-6.00); RDW-CV 15.7 % (10.5-14.5); SGOT 26 U/L (15-37); SGPT 48 U/L (30-65); TOTAL BILIRUBIN 0.5 mg/dL (<0.1-1.0); TOTAL PROTEIN 6.6 g/dL (6.4-8.2); TRIGLYCERIDE 59 mg/dL (<150); VLDL 12 mg/dL (<40)
[2020-03-14 09:03] LABS: SERUM ASSESSMENT Clear
--- NOTE | 2020-03-14 17:44 | EKG ---
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: FABBY : 1950 Requested By: Meño Kelly Order Number: [id number] Mikey MD: Denton Perez Measurements Intervals [place] Rate: 67 P: 15 MA: 172 QRS: -9 QRSD: 85 T: 45 QT: 433 QTc: 457 Interpretive Statements Sinus rhythm Nonspecific T abnormalities, lateral leads Compared to ECG 01/21/2020 11:19:17 T-wave abnormality now present Prolonged QT interval no longer present Electronically Signed On 03-14-2020 17:43:56 CDT by Denton Perez [email or web address] <ELECTRONICALLY SIGNED> By: Denton Perez MD, FACC 03/14/20 1743 0915 4 Denton Perez MD, [facility] /EPI
--- NOTE | 2020-03-14 17:45 | EKG ---
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1950 Requested By: Meño Kelly Order Number: [id number] Mikey MD: Denton Perez Measurements Intervals [place] Rate: 60 P: 15 PA: 176 QRS: -18 QRSD: 96 T: -2 QT: 432 QTc: 432 Interpretive Statements Sinus rhythm Borderline left axis deviation Borderline T wave abnormalities Compared to ECG 03/14/2020 09:15:24 No significant changes Electronically Signed On 03-14-2020 17:45:18 CDT by Denton Perez [email or web address] <ELECTRONICALLY SIGNED> By: Denton Perez MD, FACC 03/14/20 1745 1246 1246 Denton Perez MD, [facility] /EPI
[2020-03-15] VITALS (8 sets, daily range): BP systolic 109–154; BP diastolic 55–73
[2020-03-15 04:51] LABS: HEMATOCRIT 36.8 % (42.0-52.0); HEMOGLOBIN 12.7 gm/dL (14.0-18.0); MCH 30.2 pg (26.0-34.0); MCHC 34.4 g/dL (28.0-37.0); MPV 8.5 fl. (7.2-11.1); RBC 4.19 mil/uL (4.50-6.00); RDW-CV 15.4 % (10.5-14.5); WBC 6.7 thou/uL (4.0-11.0)
[2020-03-15 05:26] LABS: ALBUMIN 2.8 g/dL (3.4-5.0); CREATININE 0.8 mg/dL (0.6-1.3); POTASSIUM 3.6 mmol/L (3.5-5.1); TOTAL BILIRUBIN 0.5 mg/dL (<0.1-1.0); TOTAL PROTEIN 5.9 g/dL (6.4-8.2)
[2020-03-15 05:33] LABS: TROPONIN-I LEVEL 0.85 ng/mL (<0.06)
[2020-03-15] MEDS ORDERED: EFFIENT10 MG PO (09:18)
--- NOTE | 2020-03-15 13:42 | CARD ---
[address] [address] CARDIAC CATH REPORT Name: MIAH ORTEGA Room: [address] MLettyRLetty#: [id number] Admission: 03/14/20 Attend Phys: Meño Kelly MD, Discharge: Date of : 52 Report #: [id number] THIS REPORT FOR: //name// cc: Carlos Mccann DO Carlos Mccann DO ~ APPROVED REPORT Study performed: 03/14/2020 08:10:34 Patient Details Patient Status: Out-Patient Room #: The patient is a 69 year-old male Event Personnel Meño Kelly Manager Logistic, Silvia Cr RN RN, Giovanni Brice Monitor, Aguila Mariscal Scrub, Meño Kelly Credit Card Analyst Procedures Performed Art Access - Left femoral artery* Left Heart Cath w/or w/o Coronaries [id number] [facility] Athrectomy Diagonal Branch with JUAN JOSE placement. PTCA with JUAN JOSE to Right Posterial Lateral. closure with angioseal Indication Positive stress test Risk Factors Peripheral Vascular Disease, Hypercholesterolemia, Hypertension Previous Procedures/Diagnoses Previous Femoral Procedure, Previous MIPrevious Vascular Surgery Procedure Narrative The patient was brought electively to the Cardiac Catheterization Laboratory and was prepped and draped in a sterile manner. The left femoral was infiltrated with 2% Lidocaine subcutaneous anesthesia. A [place] 6 FR sheath was inserted into the left femoral artery. Coronary angiography was performed using coronary diagnostic catheters. The right coronary system was accessed and visualized with a Diagnostic catheter. The left coronary system was accessed and visualized with a Diagnostic catheter. The left ventricle was accessed and visualized with [place] [address] CARDIAC CATH REPORT Name: MIAH ORTEGA Room: [address] Graciela#: [id number] Admission: 03/14/20 Attend Phys: Meño Kelly MD, Discharge: Date of : 52 Report #: [id number] ventricular/Aortic Valve gradient assessed via catheter pullback. Left ventriculogram was performed in RAE projection. Pre-demployment femoral angiogram was performed . Closure device was deployed with a 6 Fr Angioseal. The patient tolerated the procedure well and there were no complications associated with the procedure. There was no hematoma. Intraoperative Conscious Sedation Sedation start time: 9:58 Case end Time: 11:27 Fentanyl 25.0 mcg Versed 2.0 mg Fluoro Time: 25.1 minutes Dose: 2757 mGy Contrast Type and Amount: Visipaque 550 ml Diagnostic Cath Left Main 0% narrowing LAD 50% mid LAD narrowing with 90% heavily calcified stenosis of the midportion of the prominent first diagonal branch of the LAD Circumflex 100% mid circumflex chronic total occlusion with recanalization to faintly fill the distal circumflex system Right Coronary 30% proximal narrowing with 90% narrowing in the midportion of the prominent distal posterolateral branch and 60% proximal posterior descending branch stenosis Left Ventriculography The left ventricle is normal in size with contractility. The left ventricular ejection fraction is estimated to be 45-50%. Left ventricular wall motion abnormalities are present. There is mid inferior akinesis and mild mid anterior hypokinesis Hemodynamics The aortic pressure is 155/50 mmHg with a mean of 75 mmHg. The left ventricular pressure is 137/-2 mmHg with a mean of mmHg. The left ventricular end diastolic pressure is 13 mmHg. There was no gradient across the aortic valve upon pullback. PCI Technique Lesion Anticoagulation was achieved with Angiomax. Percutaneous coronary intervention was performed on the first diagnonal branch segment. The lesion stenosis prior to intervention was 90% with JESUS 2 flow. A 6FR XB 3.5 100CM Guide Catheter was used to engage the ostium. A IG: BMW 190cm Interventional Guidewire was used [place] [address] CARDIAC CATH REPORT Name: MIAH ORTEGA Monica Room: [address]#: [id number] Admission: 03/14/20 Attend Phys: Meño Kelly MD, Discharge: Date of : 52 Report #: [id number] BALLOON DILATION A Balloon catheter Mini Trek RX 2.0 X 8 was inserted and inflated up to 8.00atm for 4seconds. Additional Inflation: 10.00atm for 15seconds. Additional Inflation: 10.00atm for 14seconds. A Balloon Catheter NC Trek 2.0 x 15 was inserted and inflated up to 18 triny for 12 seconds. Additional Inflation: 10 triny for 10 seconds. Additional inflation: 22 triny for 9 seconds. Additional Inflation: 24 triny for 8 seconds. An Angioscuplt PTCA 2.0 x 10mm inserted and inflated to 17 triny for 9 sec. Additional Inflations: 18 triny for 11sec; 14 triny for 14 seconds; 15 triny x 4 sec, respectively. STENT DEPLOYMENT A drug-eluting stent [place] RX Stent 2.0X15mm was inserted and inflated up to 12.00atm for 7seconds. Additional Inflation: 14.00atm for 7seconds. Additional Inflation: 14.00atm for 8seconds. A drug eluting Stent José RX Stent 2.0 x 8 mm was inserted and inflated up to 12 triny for 7 seconds; Additional Inflations: 14 triny for 7 seconds; 14 triny for 8 seconds; Followed by Nitroglycerin 200mcg Intracoronary. Final angiography reveals 0 % stenosis with JESUS 3 flow. PCI Technique Lesion 2 Percutaneous Coronary Intervention was performed on the first right posterior lateral segment. Percutaneous coronary intervention was performed on the Posterolateral branch of the distal right coronary artery. The lesion stenosis prior to intervention was 90% with JESUS 3 flow. A 6F JR 4.0 Guide Catheter was used to engage the ostium. A IG: [place] 190cm Interventional Guidewire was used to cross the lesion. Balloon Dilation A Balloon catheter Mini Trek RX 2.0 X 8 was inserted and inflated up to 10.00atm for 7seconds. Additional Inflation: 12.00atm for 8seconds. Stent Deployment A drug-eluting stent [place] RX Stent 2.0X8mm was inserted and inflated up to 10.00atm for 8seconds. Additional Inflation: 12.00atm for 6seconds. Final angiography reveals 0 % stenosis with JESUS 3 flow. Conclusion 1. Significant multivessel coronary artery disease characterized by [facility] [address] [place] [address] CARDIAC CATH REPORT Name: MIAH ORTEGA Room: [address] Ursula BanegasLetty#: [id number] Admission: 03/14/20 Attend Phys: Meño Kelly MD, Discharge: Date of : 52 Report #: [id number] the following: A 50% mid LAD narrowing with 90% heavily calcified stenosis of the midportion of the prominent first diagonal branch B 100% chronic total occlusion of the mid circumflex with recanalization to faintly fill the distal circumflex in antegrade fashion C dominant right coronary artery with 30% proximal narrowing 90% posterior lateral branch narrowing and 60% posterior descending branch narrowing 2. Modest impairment in global LV function, estimated ejection fraction being 45 to 50% with mid inferior akinesis and mild mid anterior hypokinesis 3. Mild elevation of systemic systolic pressure 4. Successful PCI with atherotomy/atherectomy and stenting of the first diagonal with 0% residual narrowing 5. Successful PCI with deployment of a drug-eluting stent at site of 90% posterolateral branch stenosis in the distal right coronary artery with 0% residual narrowing and JESUS-3 flow to the distal vessel Recommendations Cardiac Risk Reduction Program Aggressive Medical Therapy Medications Administered Aspirin (any) Prasugrel Diagnostic Cath Approved by: Meño Kelly MD Date/Time: 03/15/2020 13:32:56 <ELECTRONICALLY SIGNED> By: Meño Kelly MD, [facility] 03/15/20 1342 1342 1342Jojavon Kelly MD, FACC /INF
--- NOTE | 2020-03-15 16:15 | EKG ---
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1950 Requested By: Meño Kelly Order Number: [id number] Reading MD: Meño Kelly Measurements Intervals [place] Rate: 61 P: 26 AR: 170 QRS: -15 QRSD: 89 T: -29 QT: 523 QTc: 527 Interpretive Statements Sinus rhythm Borderline left axis deviation Borderline T abnormalities, diffuse leads Prolonged QT interval Compared to ECG 03/14/2020 12:46:56 Prolonged QT interval now present T-wave abnormality still present Electronically Signed On 03-15-2020 16:15:28 CDT by Meño Kelly [email or web address] <ELECTRONICALLY SIGNED> By: Meño Kelly MD, FAC 03/15/20 1615 0848 0848 Meño Kelly MD, FAC /EPI
--- NOTE | 2020-03-15 16:20 | D ---
[address] [address] DISCHARGE SUMMARY Name: MIAH ORTEGA Room: [address] Ursula Owens#: [id number] Admission: 03/14/20 Attend Phys: Meño Kelly MD, Discharge: 03/15/20 Date of : 52 Report #: [id number] THIS REPORT FOR: //name// cc: Carlos Mccann Bradley L. DO ~ THIS REPORT FOR: //name// CC: Carlos Kelly FINAL DISCHARGE DIAGNOSES: 1. Abnormal nuclear stress test with inducible lateral ischemia. 2. Ischemic cardiomyopathy. 3. History of congestive heart failure. 4. Diabetes mellitus. 5. History of right lower extremity amputation. PROCEDURES: 03/14/2020 -- left heart catheterization, left ventriculography, selective coronary arteriography, percutaneous coronary intervention with atherectomy and stenting of the first diagonal and stenting of the posterolateral branch of the distal right coronary artery. The patient is a 69-year-old male with complex diffuse vascular disease. He has a history of known coronary artery disease and has had a right lower extremity amputation in May last year in the context of severe peripheral vascular disease. He has underlying hypertension, diabetes and hyperlipidemia. Recently, a nuclear stress test was abnormal with a fixed inferior defect and inducible lateral ischemia. In this context, cardiac catheterization was performed on 03/14/2020. That study revealed total occlusion of the mid circumflex, the area perfusing the mid inferior wall, which is akinetic. Remaining segments are hypokinetic. Ejection fraction 45%. He had a 50% mid left anterior descending narrowing with 90% heavily calcified stenosis of a very prominent first diagonal branch of the LAD and there was 90% stenosis of a prominent posterolateral branch of the distal right coronary artery. I performed atherectomy and stenting of the first diagonal, deploying 2 José stents, 2.0 x 12 and 2.0 x 8 in the first diagonal with 0% residual narrowing. I deployed one 2.0 x 18 mm [place] drug-eluting stent in the posterolateral branch of the right coronary artery with 0% residual narrowing. Troponin jose minimally to 0.85. He ambulated without difficulty with the use of facilitating device given the amputation of [place] [address] DISCHARGE SUMMARY Name: MIAH ORTEGA Room: [address] Ursula Owens#: [id number] Admission: 03/14/20 Attend Phys: Meño Kelly MD, Discharge: 03/15/20 Date of : 52 Report #: [id number] LABORATORY DATA: On 03/15/2020 revealed sodium 138, potassium 3.6, BUN 23, down from 32, creatinine 0.8, glucose 101. Hemoglobin 12.7, white blood cell count 6700 with 168,000 platelets. DISCHARGE MEDICATIONS: The patient was discharged to home on the following medications: Metoprolol succinate 50 mg daily, losartan 25 mg daily, levofloxacin 500 mg daily, Lexapro 20 mg daily, gabapentin 100 mg t.i.d., melatonin 5 mg at bedtime, ibuprofen 800 mg q.6 hours p.r.n., varying doses of insulin as he utilizes at home, aspirin 81 mg daily, Effient or prasugrel 10 mg daily with a 60 mg edvin-procedural dose, and p.r.n. sublingual nitroglycerin. The patient is scheduled to return to see my nurse practitioner in 10 days to 2 weeks and I will plan to see him in 4-6 weeks in followup after PCI of the first diagonal and posterolateral branch of the distal right coronary artery on 03/14/2020. <ELECTRONICALLY SIGNED> By: Meño Kelly MD, FACC 03/15/20 1620 0938 1037Jojavon Kelly MD, FACC /nt
== END 2020-03-15 14:55 | disposition home or self-care (01) ==
LOC: M.CL 07:51 → M.TBA-CV 10:31 → M.2W 10:31
PROVIDERS: ADMIT Internal Medicine; ATTEND Internal Medicine
DX: I25.10 Atherosclerotic heart disease of native coronary artery without angina pectoris (principal); I25.5 Ischemic cardiomyopathy; I73.9 Peripheral vascular disease, unspecified; I50.9 Heart failure, unspecified; I11.0 Hypertensive heart disease with heart failure; E78.00 Pure hypercholesterolemia, unspecified; E11.9 Type 2 diabetes mellitus without complications; Z89.621 Acquired absence of right hip joint; Z79.899 Other long term (current) drug therapy; Z20.828 Contact with and (suspected) exposure to other viral communicable diseases

== ENCOUNTER 2020-03-17 12:53 | Inpatient (IN) | payer MEDICARE ==
[~2020-03-17] VITALS: Ht 177.8 cm; Wt 91.2 kg
[~2020-03-17 12:53] MED LIST changes: +EFFIENT10 MG PO
[2020-03-17 12:58] VITALS: BP 164/85
[2020-03-17 13:19] LABS: ABSOLUTE BASOPHILS 0.1 thou/uL (0.0-0.2); ABSOLUTE EOSINOPHILS 0.1 thou/uL (0.0-0.7); ABSOLUTE LYMPHOCYTES 1.8 thou/uL (0.8-5.3); ABSOLUTE MONOCYTES 0.6 thou/uL (0.0-1.2); ABSOLUTE NEUTROPHILS 4.3 thou/uL (1.6-8.1); BASOPHILS 0.8 %; EOSINOPHILS 1.4 %; HEMATOCRIT 39.6 % (42.0-52.0); HEMOGLOBIN 13.6 gm/dL (14.0-18.0); LYMPHOCYTES 26.6 %; MCH 30.5 pg (26.0-34.0); MCHC 34.3 g/dL (28.0-37.0); MCV 88.9 fL (80.0-100.0); MONOCYTES 9.3 %; MPV 8.1 fl. (7.2-11.1); NUCLEATED RBCS 0 /100WBC; PLATELET COUNT* 205 thou/uL (150-400); POLYS 61.9 %; RBC 4.46 mil/uL (4.50-6.00); RDW-CV 15.5 % (10.5-14.5); WBC 6.9 thou/uL (4.0-11.0)
[2020-03-17 13:26] LABS: CALCIUM 8.7 mg/dL (8.5-10.1); CREATININE 0.9 mg/dL (0.6-1.3)
[2020-03-17 13:27] LABS: APTT 24.5 Seconds (25.0-31.3)
[2020-03-17 13:37] LABS: ALBUMIN 3.2 g/dL (3.4-5.0); TOTAL BILIRUBIN 0.6 mg/dL (<0.1-1.0); TOTAL PROTEIN 6.9 g/dL (6.4-8.2)
--- NOTE | 2020-03-17 15:43 | EKG ---
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1950 Requested By: Nagi Sigala Order Number: [id number] MD: Denton Perez Measurements Intervals [place] Rate: 69 P: 23 ME: 165 QRS: -15 QRSD: 93 T: 41 QT: 425 QTc: 456 Interpretive Statements Sinus rhythm Borderline left axis deviation Compared to ECG 03/15/2020 08:48:42 T-wave abnormality no longer present Prolonged QT interval no longer present Electronically Signed On 03-17-2020 15:43:46 CDT by Denton Perez [email or web address] <ELECTRONICALLY SIGNED> By: Denton Perez MD, FACC 03/17/20 1543 1303 1303 Denton Perez MD, [facility] /EPI
[2020-03-17 21:54] VITALS: BP 147/92
[2020-03-17 22:10] VITALS: BP 147/74
[2020-03-18] VITALS (16 sets, daily range): BP systolic 96–133; BP diastolic 51–63
[2020-03-18 07:11] LABS: HEMOGLOBIN 12.4 gm/dL (14.0-18.0); MCH 30.7 pg (26.0-34.0); MCHC 34.6 g/dL (28.0-37.0); MCV 88.7 fL (80.0-100.0); RBC 4.06 mil/uL (4.50-6.00); RDW-CV 15.6 % (10.5-14.5); WBC 5.3 thou/uL (4.0-11.0)
[2020-03-18 07:26] LABS: ALBUMIN 2.9 g/dL (3.4-5.0); CALCIUM 8.1 mg/dL (8.5-10.1); CREATININE 0.9 mg/dL (0.6-1.3); MAGNESIUM 1.9 mg/dL (1.8-2.4); POTASSIUM 4.1 mmol/L (3.5-5.1); TOTAL BILIRUBIN 0.5 mg/dL (<0.1-1.0); TOTAL PROTEIN 6.1 g/dL (6.4-8.2)
--- NOTE | 2020-03-18 09:27 | CON ---
[address] [address] CONSULTATION Name: MIAH ORTEGA Room: [address] [place] M.R.#: [id number] Admission: 03/17/20 Attend Phys: João Robb, Discharge: Date of : 52 Report #: [id number] THIS REPORT FOR: //name// cc: Carlos Mccann Bradley L. DO ~ THIS REPORT FOR: //name// CC: Carlos Robb DATE OF SERVICE: 03/17/2020 CARDIOLOGY CONSULTATION HISTORY OF PRESENT ILLNESS: The patient is a 69-year-old male with a history of severe diffuse atherosclerotic disease, status post right lower extremity amputation and with a history of complex coronary artery disease. In the context of an abnormal nuclear stress test, he underwent cardiac catheterization on 03/14/2020, which revealed severe ostial and distal circumflex lesions. He had occlusion of an anterior diagonal with the LAD being without significant disease. I performed PCI, deploying stents in the proximal and distal circumflex with a good angiographic result. He was discharged home on 03/15/2020. He has noted a vague discomfort in the right upper thigh prior to discharge. That worsened until he presented to our office today with a discomfort in the thigh and some weakness. There was mild coolness noted. Noninvasive evaluation suggested no significant flow beyond the common femoral at that side and he was advised to go to the ER. In the ER, he notes the pain has improved somewhat. He has been compliant with dual antiplatelet therapy including aspirin and prasugrel as well as his diuretic, insulin, antihypertensive therapy. PAST MEDICAL HISTORY: Remarkable for diabetes, hypertension, peripheral vascular disease, status post right lower extremity amputation. SOCIAL HISTORY: There is significant prior cigarette smoking history. REVIEW OF SYSTEMS: Remarkable for the following: GENERAL: He notes generalized fatigability. VASCULAR: He notes severe peripheral vascular disease, status post right lower extremity amputation. PHYSICAL EXAMINATION: [place] [address] CONSULTATION Name: MIAH ORTEGA Room: [address] [place] [facility].#: [id number] Admission: 03/17/20 Attend Phys: João Robb, Discharge: Date of : 52 Report #: [id number] GENERAL: Demonstrates a middle-aged male, in mild distress. VITAL SIGNS: Blood pressure is 140/70, pulse rate is 72, and respirations 18 per minute. NECK: Jugular venous pressure is normal. CHEST: Clear. CARDIAC: Reveals normal first and second heart sounds with a soft systolic murmur. ABDOMEN: Mildly obese. EXTREMITIES: Reveal a right lower extremity amputations. There is slight coolness to the right thigh with no mottling, and the patient is in no active discomfort at this time. IMPRESSION: 1. Coronary artery disease, status post recent percutaneous coronary intervention via the left femoral approach. 2. Peripheral vascular disease with prior right lower extremity amputation and with coolness and abnormal duplex evaluation of the left femoral site after a recent catheterization from that approach with an Angio-Seal closure device utilized. 3. Cardiomyopathy. 4. Diabetes. 5. Hypertension. RECOMMENDATIONS: 1. After discussion with Dr. Guadarrama, we will proceed with CT angiography of the left lower extremity to further evaluate the magnitude of the disease of the left femoral site with consideration of percutaneous or open repair if required. 2. We would continue dual antiplatelet therapy if possible. 3. Continued therapy directed at the hypertension and diabetes. Critical care time is 35 minutes from 14:30-15:05 on 03/17/2020. <ELECTRONICALLY SIGNED> By: Meño Kelly MD, FACC 03/18/20 0927 1512 2101Meño Kelly MD, FACC /nt
[2020-03-18 13:00] LABS: HEMATOCRIT 30.2 % (42.0-52.0)
[2020-03-18 13:02] LABS: HEMOGLOBIN 10.4 gm/dL (14.0-18.0)
[2020-03-18 20:48] LABS: URINE BILIRUBIN NEGATIVE (Negative); URINE BLOOD NEGATIVE (Negative); URINE CLARITY CLEAR; URINE COLOR DARK YELLOW; URINE GLUCOSE-RANDOM NEGATIVE (Negative); URINE KETONES 1+ (Negative); URINE LEUKOCYTES-REFLEX NEGATIVE (Negative); URINE NITRITE-REFLEX NEGATIVE (Negative); URINE PROTEIN NEGATIVE (Negative); URINE UROBILINOGEN 0.2 E.U./dl (0.2-1.0)
[2020-03-19] VITALS (40 sets, daily range): BP systolic 100–133; BP diastolic 43–67
[2020-03-19 05:55] LABS: HEMATOCRIT 27.9 % (42.0-52.0); HEMOGLOBIN 9.9 gm/dL (14.0-18.0); MCH 30.8 pg (26.0-34.0); MCHC 35.4 g/dL (28.0-37.0); RBC 3.21 mil/uL (4.50-6.00); RDW-CV 15.3 % (10.5-14.5); WBC 8.7 thou/uL (4.0-11.0)
[2020-03-19 06:36] LABS: APTT 62.3 Seconds (25.0-31.3); PROTIME 10.7 Seconds (9.20-11.50)
[2020-03-19 06:41] LABS: ALBUMIN 2.6 g/dL (3.4-5.0); CALCIUM 8.1 mg/dL (8.5-10.1); CREATININE 0.9 mg/dL (0.6-1.3); MAGNESIUM 1.7 mg/dL (1.8-2.4); POTASSIUM 4.4 mmol/L (3.5-5.1); TOTAL BILIRUBIN 0.8 mg/dL (<0.1-1.0); TOTAL PROTEIN 5.3 g/dL (6.4-8.2)
--- NOTE | 2020-03-19 19:20 | OP ---
[facility] [place] [place] [address] OPERATIVE REPORT Name: MIAH ORTEGA Room: [address] IN M.R.#: [id number] Admission: 03/17/20 Attend Phys: João Robb, Discharge: Date of : 52 Report #: [id number] THIS REPORT FOR: //name// cc: Carlos Mccann Bradley L. 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 SURGEON: Jw Minor DO. WAREHOUSE TEAM MEMBER: None. ANESTHESIA: General endotracheal anesthesia. PROCEDURES: 1. Left common femoral artery exposure. 2. Removal of foreign body from left common femoral artery (Angio-Seal closure device). 3. Left femoral endarterectomy, bovine pericardial patch angioplasty. 4. Diagnostic angiogram, left superficial femoral artery and left lower extremity catheter position third order. 5. Angioplasty and stent of the left superficial femoral artery x 2 with [place] Viabahn 6 mm x 5 cm and [place] Viabahn 7 mm x 5 cm. 6. Ultrasound-guided access of left popliteal artery. ESTIMATED BLOOD LOSS: 1 liter. SPECIMEN: 1. Foreign body. 2. Endarterectomy plaque. 3. Thrombus. COMPLICATIONS: None. CONDITION: Stable. DISPOSITION: ICU. [address] [address] OPERATIVE REPORT Name: MIAH ORTEGA Monica Room: [address] IN M.R.#: [id number] Admission: 03/17/20 Attend Phys: João Robb, Discharge: Date of : 52 Report #: [id number] INDICATIONS FOR THE PROCEDURE AND CONSENT: The patient is a 69-year-old male who presented with a 5-day history of left leg pain following cardiac catheterization. He is identified to have an occlusion of his left common femoral artery, suspected to be related to his Angio-Seal closure device. Recommendation for exploration with repair, removal of the Angio-Seal device was made. Risks and benefits were discussed, infection, bleeding, limb loss, need for additional procedures, heart attack, stroke, or . The patient wished to proceed, was consented and scheduled. PROCEDURE IN DETAIL: After timeout was performed, the patient was placed in supine position with sterile prep and drape of the anterior abdomen, bilateral groins, bilateral thighs as well as circumferential lower extremity prep with left lower extremity. A semi-transverse incision was made overlying the left common femoral artery. Dissection carried down using Bovie electrocautery and Metzenbaum scissors. The femoral sheath was opened longitudinally with Metzenbaum scissors and Bovie electrocautery. The closure device was identified and its entry point was not bleeding. The proximal and distal control to this area was obtained using vessel loops. The patient was systemically heparinized with additional 6000 units of heparin and the patient was noted to already be a heparin drip and with Effient on board. A transverse arteriotomy was made at the closure device and the device was removed using a forceps. A tonsil was used to remove additional thrombus in this area and #4 Sumaya was advanced up the left external iliac vessel and inflow was restored and noted to be brisk. The #4 Sumaya was then also passed into the profunda artery and the superficial femoral artery and both passed easily and no thrombus was identified. There was still a residual of flap and dissection at the profunda site and leading into the superficial artery. This was a quite large section of plaque and this was endarterectomized. There appeared to be good backbleeding from the superficial artery and the profunda artery and the arteriotomy was closed with 5-0 Prolene suture. Blood flow was restored through the left lower extremity. A Doppler was performed. This demonstrated the profunda and common femoral artery to have multiphasic flow, but there was obstructive signal within the superficial femoral artery and I was concerned there was a distal flap. I then reopened the femoral artery and again attempted to pass the Sumaya balloon, it would not pass, appeared to be in a dissection plane. I obtained to the C-arm and redosed to heparin. We then spent significant amount of time trying to gain reentry to the superficial femoral artery to restore inline flow to the popliteal artery. I initially opened the femoral artery longitudinally down on to the SFA and appeared to have a good end point again and I placed a patch. The blood flow was then restored again and still had an obstructing flow of the SFA. At this point, I accessed the sheath with a micropuncture needle and wire and performed left lower extremity angiography. The wire [address] [address] OPERATIVE REPORT Name: MIAH ORTEGA Room: [facility] IN M.R.#: [id number] Admission: 03/17/20 Attend Phys: João Robb, Discharge: Date of : 52 Report #: [id number] preferentially passed into the profunda artery. I was unable to gain reentry into the superficial artery from above. I therefore obtained an ultrasound machine and sterilely prep the ultrasound probe. I was able to identify the superficial femoral artery in the mid to distal thigh above Jordy's canal and using a micropuncture needle, wire, and a microsheath with a retrograde access of the superficial femoral artery. I advanced a Glidewire retrograde up to the common femoral artery. I then using a 6-Macedonian sheath advanced it over the wire from above and removed the wire and readvanced it down the superficial femoral artery. I then performed a left lower extremity angiogram from the sheath and this demonstrated the superficial femoral artery to be widely patent as was the popliteal. Below the knee there was single vessel runoff primarily through the peroneal artery although the anterior tibial artery appeared to be partially patent as well. The posterior tibial artery was not visualized. At this point, I felt that the likely cause of his concerns was a dissection flap at the origin of the superficial femoral artery. I made preparations to stent this with a [place] Viabahn stent. At this point, I advanced my Glidewire Advantage and seeker catheter into the distal popliteal artery to confirm the below-knee flow. Once this was confirmed, I was satisfied, this was likely his original flow. I advanced a [place] Viabahn 6 x 5 cm covered stent to the area of my micropuncture sheath within the SFA and deployed it overlying my access hole and removed the sheath to prevent any bleeding in a patient that would likely require postoperative heparin and Effient. At this point, I made a special cares to the origin of the profunda artery, identifying it both with a profunda clamp and under fluoroscopy. I then obtained the 7 x 5 Viabahn stent and deployed it in the proximal superficial femoral artery also into the origin of my patch. The blood flow was noted to backbleed well from this area. I then maintained wire access and my 0.014 wire and reclosed the patch. Once the patch was closed and I closed it entirely over the wire, I then listened again with a Doppler and although I had excellent profunda flow the superficial femoral artery was still difficult to sculpt. I repeated angiography of the left SFA. I felt that the inability to sculpt the proximal SFA was due to the Viabahn stent. I performed a completion angiogram, which demonstrated excellent flow into the popliteal artery and the peroneal artery. I then spent time identifying a popliteal artery signal which was triphasic although difficult to identify, it was triphasic and once identified, it appeared to be a strong signal. I then irrigated the wound copiously and removed my 0.014 wire. Hemostasis was achieved with mild pressure and the wound was closed in layers using 2-0 Vicryl and 4-0 Monocryl suture and Dermabond dressing. The patient tolerated the procedure well and was transferred [place] [address] OPERATIVE REPORT Name: MIAH ORTEGA Room: [address] M.R.#: [id number] Admission: 03/17/20 Attend Phys: João Robb, Discharge: Date of : 52 Report #: [id number] Should the patient reocclude or have continued issues will likely require bypass or amputation. <ELECTRONICALLY SIGNED> By: Jw Minor DO 03/19/20 1920 1518 1613Jw Minor DO /nt
[2020-03-20] VITALS (16 sets, daily range): BP systolic 94–140; BP diastolic 46–72
[2020-03-20 04:21] LABS: HEMATOCRIT 23.9 % (42.0-52.0); HEMOGLOBIN 8.6 gm/dL (14.0-18.0); MCH 31.3 pg (26.0-34.0); MCHC 36.1 g/dL (28.0-37.0); MCV 86.8 fL (80.0-100.0); MPV 8.8 fl. (7.2-11.1); RBC 2.75 mil/uL (4.50-6.00); RDW-CV 15.4 % (10.5-14.5); WBC 7.6 thou/uL (4.0-11.0)
[2020-03-20 06:28] LABS: ALBUMIN 2.4 g/dL (3.4-5.0); CALCIUM 8.1 mg/dL (8.5-10.1); CREATININE 0.9 mg/dL (0.6-1.3); POTASSIUM 3.9 mmol/L (3.5-5.1); TOTAL BILIRUBIN 0.7 mg/dL (<0.1-1.0); TOTAL PROTEIN 5.3 g/dL (6.4-8.2)
[2020-03-21] VITALS (8 sets, daily range): BP systolic 86–134; BP diastolic 48–78
[2020-03-21 03:29] LABS: HEMATOCRIT 23.2 % (42.0-52.0); HEMOGLOBIN 8.3 gm/dL (14.0-18.0); MCHC 35.6 g/dL (28.0-37.0); MCV 87.1 fL (80.0-100.0); RBC 2.67 mil/uL (4.50-6.00); RDW-CV 15.6 % (10.5-14.5); WBC 6.3 thou/uL (4.0-11.0)
[2020-03-21 04:01] LABS: CALCIUM 8.3 mg/dL (8.5-10.1); MAGNESIUM 1.7 mg/dL (1.8-2.4); POTASSIUM 3.8 mmol/L (3.5-5.1)
[2020-03-22] VITALS (14 sets, daily range): BP systolic 92–145; BP diastolic 47–76
[2020-03-22 04:09] LABS: HEMATOCRIT 22.4 % (42.0-52.0); HEMOGLOBIN 8.2 gm/dL (14.0-18.0); MCH 31.8 pg (26.0-34.0); MCHC 36.5 g/dL (28.0-37.0); MCV 87.1 fL (80.0-100.0); MPV 8.1 fl. (7.2-11.1); RBC 2.57 mil/uL (4.50-6.00); RDW-CV 15.5 % (10.5-14.5); WBC 5.4 thou/uL (4.0-11.0)
[2020-03-22 04:20] LABS: CALCIUM 8.3 mg/dL (8.5-10.1); POTASSIUM 3.8 mmol/L (3.5-5.1)
--- NOTE | 2020-03-22 12:06 | PATH ---
[address] [address] PATHOLOGY RPT PROCEDURE Name: MIAH BLANTON Room: [address] IN .R.#: [id number] Admission: 03/17/20 Date of : 52 Discharge: Report #: [id number] Path Case #: [id number] [facility] Accession Number: [id number] . 01 Material submitted: . PART A: artery - ANGIO-SEAL PLUG. Modifiers: femoral PART B: artery - ENDARTERECTOMY. Modifiers: femoral . 01 Clinician provided ICD-10: I74.3 I50.43 . 01 Clinical history: . LEFT FEMORAL CLOT, OCCLUDED LEFT FEMORAL ARTERY . 02 Diagnosis: A. "Angio-Seal plug": - Benign fibrointimal tissue and grossly identified clear foreign object. . B. "Endarterectomy": - Benign fibrointimal tissue with calcifying arteriosclerosis and thrombus. (JOANN:pit 03/22/2020) QTP 03/22/2020 1156 Local . 02 Electronically signed: . Mike Alvarez MD, Pathologist NPI- [id number] . 01 Gross description: . A. The specimen is received in formalin, labeled "Miah Blanton, Angio-Seal plug" and consists of 2 segments of patel-brown tissue measuring 1.6 x 1.5 x 0.4 cm which are entirely submitted in A1. Also received a clear plastic object measuring 0.9 x 0.3 x 0.2 cm. A gross photo is taken. . B. The specimen is received in formalin, labeled "Miah Blanton, endarterectomy" and consists of rubbery patel tissue and blood clot measuring 3.8 x 1.5 x 0.6 cm in aggregate. Lap Hand Tool tissue is submitted in B1. (SDY; 03/21/2020) SYU/SYU 03/21/2020 1133 Local . 02 Pathologist provided ICD-10: I74.3 . 02 CPT . 398137, [id number] Specimen Comment: A courtesy copy of this report has been sent to [phone], [place] [address] PATHOLOGY RPT PROCEDURE Name: MIAH BLANTON Room: [facility] IN .R.#: [id number] Admission: 03/17/20 Date of : 52 Discharge: Report #: [id number] Path Case #: [id number] Specimen Comment: [id number], , Specimen Comment: Report sent to ,DR MILLARD,DR WYATT / DR DOBBS Performed at: 01 [facility] [address], [place], [place] [id number] MD Anderson Jacques MD Phone: [phone] Performed at: 02 [facility] [address] [place], [place] [id number] MD Mike Alvarez MD Phone: [phone]
[2020-03-23 04:00] VITALS: BP 120/60
[2020-03-23] MEDS ORDERED: XANAX1 MG PO (05:48)
[2020-03-23] MEDS ORDERED: NORVASC 2.5 MG2.5 M1 PO (05:50)
[2020-03-23] MEDS ORDERED: LIPITOR40 MG PO (05:50)
[2020-03-23 07:30] VITALS: BP 132/69
[2020-03-23 10:53] VITALS: BP 132/69
[2020-03-23] MEDS ORDERED: LIPITOR 40 MG T40 M1 PO (11:06)
[2020-03-23] MEDS ORDERED: TRAMADOL 50 MG50 MG PO (11:06)
[2020-03-23 12:00] VITALS: BP 112/62
[2020-03-23 13:23] VITALS: BP 132/69
[2020-03-23 13:25] VITALS: BP 132/69
== END 2020-03-23 14:44 | disposition home health service (06) | DRG 252 ==
LOC: M.ERS 12:53 → M.ICU 15:54 → M.TBA-ER 15:54 → M.2W 15:54 → M.ICU 03-18 17:49 → M.2W 03-22 14:33
PROVIDERS: Anesthesiology; Family Medicine; Internal Medicine; Surgery; ADMIT Family Medicine; ATTEND Family Medicine
PROC: 04UL0KZ Supplement Left Femoral Artery with Nonautologous Tissue Substitute, Open Approach (ICD-10-PCS; principal; 2020-03-18)
PROC: 047L35Z Dilation of Left Femoral Artery with Two Drug-eluting Intraluminal Devices, Percutaneous Approach (ICD-10-PCS; principal; 2020-03-18)
PROC: B41G1ZZ Fluoroscopy of Left Lower Extremity Arteries using Low Osmolar Contrast (ICD-10-PCS; principal; 2020-03-18)
PROC: 04PY0YZ Removal of Other Device from Lower Artery, Open Approach (ICD-10-PCS; principal; 2020-03-18)
PROC: B44GZZZ Ultrasonography of Left Lower Extremity Arteries (ICD-10-PCS; principal; 2020-03-18)
PROC: 30233N1 Transfusion of Nonautologous Red Blood Cells into Peripheral Vein, Percutaneous Approach (ICD-10-PCS; principal; 2020-03-18)
PROC: 04CL0ZZ Extirpation of Matter from Left Femoral Artery, Open Approach (ICD-10-PCS; principal; 2020-03-18)
DX: I74.3 Embolism and thrombosis of arteries of the lower extremities (principal); I50.43 Acute on chronic combined systolic (congestive) and diastolic (congestive) heart failure; E44.0 Moderate protein-calorie malnutrition; I42.9 Cardiomyopathy, unspecified; J90 Pleural effusion, not elsewhere classified; E11.51 Type 2 diabetes mellitus with diabetic peripheral angiopathy without gangrene; I99.8 Other disorder of circulatory system; I25.10 Atherosclerotic heart disease of native coronary artery without angina pectoris; I11.0 Hypertensive heart disease with heart failure; Z20.828 Contact with and (suspected) exposure to other viral communicable diseases; F32.9 Major depressive disorder, single episode, unspecified; F41.9 Anxiety disorder, unspecified; K21.9 Gastro-esophageal reflux disease without esophagitis; E11.40 Type 2 diabetes mellitus with diabetic neuropathy, unspecified; I70.202 Unspecified atherosclerosis of native arteries of extremities, left leg; Z89.511 Acquired absence of right leg below knee; Z79.899 Other long term (current) drug therapy; Z79.4 Long term (current) use of insulin; Z68.28 Body mass index [BMI] 28.0-28.9, adult

== ENCOUNTER → 2020-09-12 | Outpatient (CLI) | payer OTHER ==
[~2020-09-12] MED LIST changes: +LIPITOR 40 MG T40 M1 PO; +LIPITOR40 MG PO; +NORVASC 2.5 MG2.5 M1 PO; +XANAX1 MG PO
[2020-09-12 09:32] LABS: ALBUMIN 3.1 g/dL (3.4-5.0); ALKALINE PHOSPHATASE 126 U/L (46-116); ANION GAP 8 mmol/L (7-16); BUN 18 mg/dL (7-18); CHLORIDE 106 mmol/L (98-107); CHOLESTEROL 100 mg/dL (<200); CO2 28 mmol/L (21-32); CREATININE 0.8 mg/dL (0.6-1.3); GLUCOSE 83 mg/dL (70-99); HDL CHOLESTEROL 45 mg/dL (>40); LDL CHOLESTEROL 49 mg/dL (<100); POTASSIUM 3.8 mmol/L (3.5-5.1); SGOT 20 U/L (15-37); SGPT 16 U/L (30-65); SODIUM 142 mmol/L (136-145); TC:HDL 2.2 Ratio (Not establshd); TOTAL BILIRUBIN 0.5 mg/dL (<0.1-1.0); TOTAL PROTEIN 6.5 g/dL (6.4-8.2); TRIGLYCERIDE 32 mg/dL (<150); VLDL 6 mg/dL (<40)
[2020-09-12 09:33] LABS: SERUM ASSESSMENT Clear
== END ==
LOC: M.LAB 08:54
PROVIDERS: ATTEND Registered Nurse
DX: I25.5 Ischemic cardiomyopathy (principal)

== ENCOUNTER → 2021-05-11 | Outpatient (CLI) | payer OTHER ==
--- NOTE | 2021-05-12 17:48 | CARDNUC ---
[place] [address] CARDIAC NUCLEAR IMAGING REPORT Name: JORDANMIAH Monica Room: [facility]#: [id number] Admission: 05/11/21 Attend Phys: Silvana Elizondo Discharge: Date of : 52 Date of Service: 05/12/21 1748 Report #: [id number] THIS REPORT FOR: cc: Carlos Mccann Bradley L. DO Liston, Michael J. MD [facility] ~ ADDENDUM APPROVED REPORT Imaging Protocol: Rest Tc-99m/Stress Tc-99m 1 day Study performed: 05/11/2021 14:18:21 Indication: CAD s/p PCI Patient Location: Out-Patient ND Tech:POLO Crespo Ht: 5 ft 10 in Wt: 228 lbs BSA: 2.21 m2 HR: 69 bpm BP: 149/89 mmHg BMI: 32.71 Medical History Medical History: CAD s/p stent, HTN, Diabetes Medications: Aspirin, Metoprolol, Losartan Allergies: No known drug allergies Cardiac Risk Factors: Age, DM, PVD, FHX of CAD Previous Cardiac Procedures: PCI Exercise History: Sedentary Meds Held (24 hrs): Metoprolol Patient is status post stent placement. 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 Nuclear Pharmacological study performed. Patient tolerated well. No changes and no complaints of pain. Resting Data Rest SPECT myocardial perfusion imaging was performed in supine position 30 minutes following the intravenous injection of 9.5 mCi of Tc-99m Sestamibi. Time of rest injection: 1315 Date: 05/11/2021 The images were gated to evaluate regional wall motion and calculate left ventricular ejection fraction. Administration Route: IV Pharmacologic Stress Pharmacologic stress test was performed by injecting Regadenoson 0.4 mg IV push over 10-15 seconds immediately [place] [address] CARDIAC NUCLEAR IMAGING REPORT Name: MIAH ORTEGA Room: [facility]#: [id number] Admission: 05/11/21 Attend Phys: Silvana Elizondo Discharge: Date of : 52 Date of Service: 05/12/21 1748 Report #: [id number] injection of 32.2 mCi of Tc-99m Sestamibi. Time of stress injection: 1420 Date: 05/11/2021 Administration Route: IV Gated Stress SPECT was performed 40 minutes after stress injection. The images were gated to evaluate regional wall motion and calculate left ventricular ejection fraction. Prone imaging was performed. Stress Test Details Stress Test: Pharmacologic stress testing performed using 0.4 mg of regadenoson per 5 mL given IV over 10 seconds. 60 mg caffeine given for nausea. HR Max Heart Rate (APMHR): 151 bpm Resting HR: 69 bpm Target HR (85% APMHR): 128 bpm Max HR Achieved: 89 bpm % of APMHR: 58 Recovery HR: 89 bpm BP Resting BP: 149/81 mmHg Max BP: 174/87 mmHg Recovery BP: 125/73 mmHg BP response to stress: Normal blood pressure response to stress. ECG Resting ECG: Sinus Rhythm Stress ECG: Sinus Rhythm ST Change: None Arrhythmia: None Recovery ECG: Sinus Rhythm Recovery ST Change: None Recovery Arrhythmia: None Clinical Reason for Termination: Completed protocol Stress Symptoms: upset stomach The patient tolerated Lexiscan infusion without significant cardiac symptoms. Stress ECG Conclusion The baseline twelve-lead EKG shows sinus rhythm without significant ST segment or T wave abnormality. EKGs obtained during and post Lexiscan infusion show sinus rhythm with no significant ST segment changes when compared to baseline. There were no significant stress[place] [address] CARDIAC NUCLEAR IMAGING REPORT Name: MIAH ORTEGA Room: [facility]#: [id number] Admission: 05/11/21 Attend Phys: Silvana Elizondo Discharge: Date of : 52 Date of Service: 05/12/21 1748 Report #: [id number] Study Quality Study: Good Artifact: No artifact Study Data At rest, the left ventricular ejection fraction was 50%.. Post stress, the left ventricular ejection was 49%.. TID = 0.98. Perfusion Perfusion images obtained at rest show mild photopenia of the basal to mid inferior wall. No other defects are identified. Perfusion images post stress show a moderate size severe intensity defect involving the mid to distal inferior wall. Additionally there is a moderate sized mild intensity defect of the lateral wall. Wall Motion Global LV systolic function mildly creased. There is mild hypokinesis of the inferolateral wall. Nuclear Conclusion ECG Findings: negative for ischemia Clinical Findings: negative for ischemia Nuclear Findings: positive for ischemia Exercise Capacity: not assessed Left Ventricular Function: abnormal Risk Study: high Perfusion images suggest stress-induced ischemia involving the mid anterior and lateral wall. LV systolic dysfunction mildly decreased with wall motion abnormalities as outlined above. This is a high risk study. <Conclusion> The baseline twelve-lead EKG shows sinus rhythm without significant ST segment or T wave abnormality. EKGs obtained during and post Lexiscan infusion show sinus rhythm with no significant ST segment changes when compared to baseline. There were no significant stress-induced arrhythmias. <ELECTRONICALLY SIGNED> By: Denton Perez MD, FACC 05/12/211747 174 47 Denton Perez MD, FACC /INF
== END ==
LOC: M.NUC 01-31 09:18 → M.LAB 12:38 → M.NUC 12:38
PROVIDERS: ATTEND Internal Medicine
DX: I25.10 Atherosclerotic heart disease of native coronary artery without angina pectoris (principal); Z95.5 Presence of coronary angioplasty implant and graft

== ENCOUNTER → 2021-05-30 | Outpatient (CLI) | payer OTHER ==
[~2021-05-30] VITALS: Ht 177.8 cm; Wt 104.3 kg
[2021-05-30] VITALS (7 sets, daily range): BP systolic 113–146; BP diastolic 64–76
[~2021-05-30] MED LIST changes: +MELATONIN10 M3 PO; +NEURONTIN 300M300 M2 PO; +PROTONIX40 M2 PO
[2021-05-30 13:07] LABS: HEMATOCRIT 41.7 % (42.0-52.0); HEMOGLOBIN 14.1 gm/dL (14.0-18.0); MCH 31.6 pg (26.0-34.0); MCHC 33.9 g/dL (28.0-37.0); MCV 93.3 fL (80.0-100.0); MPV 8.4 fl. (7.2-11.1); RBC 4.47 mil/uL (4.50-6.00); RDW-CV 14.1 % (10.5-14.5); WBC 9.6 thou/uL (4.0-11.0)
[2021-05-30 13:20] LABS: PROTIME 10.1 Seconds (9.20-11.50)
[2021-05-30 13:26] LABS: ANION GAP 8 mmol/L (7-16); BUN 26 mg/dL (7-18); CALCIUM 8.6 mg/dL (8.5-10.1); CHLORIDE 104 mmol/L (98-107); CO2 26 mmol/L (21-32); CREATININE 0.9 mg/dL (0.6-1.3); GLUCOSE 116 mg/dL (70-99); POTASSIUM 5.2 mmol/L (3.5-5.1); SODIUM 138 mmol/L (136-145)
[2021-05-30 13:28] LABS: ALBUMIN 3.3 g/dL (3.4-5.0); ALKALINE PHOSPHATASE 126 U/L (46-116); CHOLESTEROL 114 mg/dL (<200); HDL CHOLESTEROL 51 mg/dL (>40); LDL CHOLESTEROL 55 mg/dL (<100); SGOT 35 U/L (15-37); SGPT 45 U/L (30-65); TC:HDL 2.2 Ratio (Not establshd); TOTAL BILIRUBIN 0.6 mg/dL (<0.1-1.0); TOTAL PROTEIN 7.2 g/dL (6.4-8.2); TRIGLYCERIDE 42 mg/dL (<150); VLDL 8 mg/dL (<40)
[2021-05-30 13:29] LABS: SERUM ASSESSMENT Clear
--- NOTE | 2021-05-31 14:15 | EKG ---
[place] [address] ELECTROCARDIOGRAM REPORT Name: MIAH ORTEGA Room: [facility]#: [id number] Admission: 05/30/21 Attend Phys: Silvana Elizondo Discharge: Date of : 52 Date of Service: 05/30/21 1326 Report #: [id number] THIS REPORT FOR: //name// [facility] Test Date: 2021-05-30 Test Time: 13:26:52 Pat Name: MIAH ORTEGA Department: Room: Gender: Client Development Manager: : 1950 Requested By: Meño Kelly Order Number: [id number] Reading MD: Meño Kelly Measurements Intervals Zoe Rate: 63 P: -2 WY: 166 QRS: -21 QRSD: 103 T: -2 QT: 432 QTc: 443 Interpretive Statements Sinus rhythm Borderline left axis deviation Abnormal R-wave progression, late transition Borderline T wave abnormalities Compared to ECG 03/17/2020 13:03:33 T-wave abnormality now present Electronically Signed On 05-31-2021 14:15:39 STORE LEADER by Meño Kelly [email or web address] <ELECTRONICALLY SIGNED> By: Meño Kelly MD, [facility] 05/31/21 1415 1326 1326 Meño Kelly MD, [facility] /EPI
--- NOTE | 2021-06-01 18:18 | CARD ---
[address] [address] CARDIAC CATH REPORT Name: MIAH ORTEGA Room: [facility]#: [id number] Admission: 05/30/21 Attend Phys: Meño Kelly MD, Discharge: Date of : 52 Report #: [id number] THIS REPORT FOR: cc: Carlos Mccann Bradley L. DO Liston, Michael J. MD [facility] ~ APPROVED REPORT Study performed: 05/30/2021 13:58:22 Patient Details Patient Status: Out-Patient Room #: The patient is a 71 year-old male Event Personnel Matthias Cervantes RN Freezer Tunnel OperatorChris vieyra Michael Video Effects Editor, Enedina Lin Reeves, Adam RTR Monitor Procedures Performed Left Heart Cath w/or w/o Coronaries [id number] [facility] Hemostasis w/ Mynx Admission/Lab Medications/Medications given during procedure Lidocaine Subcut 20 ml, Midazolam (Versed) IV 2 mg, Fentanyl IV 50 mcg Procedure Narrative The patient was brought electively to the Cardiac Catheterization Laboratory and was prepped and draped in a sterile manner. The right femoral was infiltrated with 2% Lidocaine subcutaneous anesthesia. IV conscious sedation was used throughout procedure with appropriate monitoring and was performed in the presence of a registered nurse who was an independent trained observer other than the physician performing the procedure. A 6fr Ultimum Sheath sheath was inserted into the right femoral artery. Coronary angiography was performed using coronary diagnostic catheters. The right coronary system was accessed and visualized with a Diagnostic JR4 6Fr catheter. The left coronary system was accessed and visualized with a Diagnostic JL4 6Fr catheter. The left ventricle was accessed and visualized with a Diagnostic Pigtail 6Fr catheter. Left ventricular/Aortic Valve gradient assessed via catheter pullback. Pre-demployment femoral angiogram was performed . Closure device was deployed with a 6 Fr Mynx. The patient tolerated the procedure well [place] [address] CARDIAC CATH REPORT Name: MIAH ORTEGA Room: [facility]#: [id number] Admission: 05/30/21 Attend Phys: Meño Kelly MD, Discharge: Date of : 52 Report #: [id number] complications associated with the procedure. There was no hematoma. Intraoperative Conscious Sedation Sedation start time: 1434 Case end Time: 1457 Fentanyl 50 mcg Versed 2 mg Fluoro Time: 1.3 minutes Dose: DAP 42404 cGycm2 1158.29 mGy Contrast Type and Amount: Visipaque 80 mL Diagnostic Cath Left Main The left main coronary artery is normal and bifurcates into a left anterior descending and circumflex coronary artery. LAD The left anterior descending coronary artery has diffuse plaquing throughout with 50% narrowing in the mid vessel. Diagonal 1 A large first diagonal branch has approximately 30% narrowing proximally. The remainder the vessel appears to be free of significant disease. There is a widely patent stent noted in the midportion of this vessel. Circumflex The circumflex coronary artery is without significant disease in its proximal to midportion. The distal portion is diffusely moderately plaqued and small in caliber. OM1 A first obtuse marginal branch is totally occluded in its midportion. OM2 A second obtuse marginal branch is chronically subtotally occluded and faintly filled in antegrade fashion. Right Coronary The right coronary artery is diffusely moderately plaqued with 30% narrowing proximally. The remainder the vessel appears to be free of significant disease. R PDA A small in caliber PDA is diffusely moderately plaqued without occlusive stenoses noted. RPLV A moderate sized single branched posterior lateral LV branch is free of significant disease. There is a widely patent stents noted. Left Ventriculography Left Ventriculography was not performed. Hemodynamics The aortic pressure is 153/61 mmHg with a mean of 82 mmHg. The left ventricular pressure is 157/12 mmHg with a mean of mmHg. The left ventricular end diastolic pressure is 23 [place] [address] CARDIAC CATH REPORT Name: MIAH ORTEGA Room: [facility]#: [id number] Admission: 05/30/21 Attend Phys: Meño Kelly MD, Discharge: Date of : 52 Report #: [id number] Conclusion 1. Significant occlusive disease involving the first and second obtuse marginal branches that appears to be chronic. 2. Widely patent stents in the diagonal branch and posterior lateral LV branch. 3. Left ventriculography not performed. 4. Mildly elevated left ventricular end-diastolic pressure. Recommendations 1. Continue aggressive risk factor modification and medical management. <ELECTRONICALLY SIGNED> By: Denton Perez MD, FACC 06/01/211817 17 17Michaeteto Perez MD, FACC /INF
== END | disposition home or self-care (01) ==
LOC: M.CL 05:45
PROVIDERS: ATTEND Internal Medicine
DX: R94.39 Abnormal result of other cardiovascular function study (principal); I25.10 Atherosclerotic heart disease of native coronary artery without angina pectoris; I50.9 Heart failure, unspecified; E11.621 Type 2 diabetes mellitus with foot ulcer; Z98.890 Other specified postprocedural states; Z79.899 Other long term (current) drug therapy; Z79.4 Long term (current) use of insulin; Z20.822 Contact with and (suspected) exposure to COVID-19